=== PATIENT | male | born 1950 | race African-American/Black ===

== ENCOUNTER 2018-04-01 02:38 | Observation (INO) ==
--- NOTE | 2018-04-01 03:08 | ED ---
HPI General Chief Complaint: Chest Pain Stated Complaint: Chest pain Time Seen by Provider: 04/01/18 03:08 Source: patient Mode of arrival: ambulatory Limitations: no limitations History of Present Illness HPI narrative: 67-year-old male arrives with chest pain. Started about 3 hours ago while he was at rest. Location was retrosternal and did not radiate. He took nitro and aspirin and the pain at the time of my assessment in the ED had resolved. There is no shortness of breath. The patient has a history of CABG with 2 subsequent catheterization procedures with stents placed multiple times. He reports noncompliance with aspirin over the past several months however had taken intermittently over the past several days. He denies any change in his normal exercise or work routine. No shortness of breath. No cough or fever. Patient states it feels like prior heart related episodes. He reports history of "prediabetes" as well as hypertension hyperlipidemia. No tobaccoism. MD complaint: chest pain STEMI Alert: No Onset (ago): hour(s) (2.5) Duration: now resolved Onset: during rest Pain location: substernal Severity: mild Quality: heaviness Pain radiation: none Relieving factors: nitroglycerin and other (Aspirin) Exacerbating factors: exertion Related Data Allergies Allergy/AdvReac Type Severity Reaction Status Date / Time diatrizoate meglumine Allergy Severe Nausea Verified 04/01/18 02:46 fenofibrate Allergy Severe Nausea Verified 04/01/18 02:46 gadobenic acid Allergy Severe Nausea Verified 04/01/18 02:46 gadodiamide Allergy Severe Nausea Verified 04/01/18 02:46 gadoteridol Allergy Severe Nausea Verified 04/01/18 02:46 iodixanol Allergy Severe Nausea Verified 04/01/18 02:46 iohexol Allergy Severe Nausea Verified 04/01/18 02:46 iodine Allergy Mild Nausea/Vomi Verified 04/01/18 02:46 ting potassium iodide Allergy Mild Nausea/Vomi Verified 04/01/18 02:46 ting povidone-iodine Allergy Mild Nausea/Vomi Verified 04/01/18 02:46 ting sodium iodide Allergy Mild Nausea/Vomi Verified 04/01/18 02:46 ting sodium iodide Allergy Mild Nausea/Vomi Verified 04/01/18 02:46 ting STATINS Allergy Severe Muscle Pain Uncoded 04/01/18 02:46 Review of Systems ROS: all other systems reviewed are negative [facility] Medical History Medical History Hypercholesteremia (Acute) Hypertension (Acute) Myocardial infarct (Acute) Surgical History Surgical History Hx of CABG (Acute) Hx of appendectomy (Acute) Hx of heart artery stent (Acute) Social History Social History Substance History: No History of Abuse Second Hand Smoke Exposure: No Smoking Status: Never smoker How Often Do You Have a Drink Containing Alcohol: Never Recent Travel in [facility] within the Last 8 Weeks: No Recent Out of Country Travel within the Last 8 Weeks: No Immunization History Tetanus Immunization: <5 Years Hx Influenza Vaccine This Season: No Exam Narrative Exam Narrative: GENERAL: 67-year-old male well-nourished well-developed no acute distress SKIN: Focused skin assessment warm/dry. HEAD: Atraumatic. Normocephalic. EYES: Pupils equal and round. No scleral icterus. No injection or drainage. ENT: No nasal bleeding or discharge. Mucous membranes pink and moist. NECK: Trachea midline. No JVD. CARDIOVASCULAR: Regular rate and rhythm. No murmur appreciated. RESPIRATORY: No accessory muscle use. Clear to auscultation. Breath sounds equal bilaterally. GASTROINTESTINAL: Abdomen soft, non-tender, nondistended. Hepatic and splenic margins not palpable. MUSCULOSKELETAL: No obvious deformities. No clubbing. No cyanosis. No edema. NEUROLOGICAL: Awake and alert. No obvious cranial nerve deficits. Motor grossly within normal limits. Normal speech. PSYCHIATRIC: Appropriate mood and affect; insight and judgment normal Course Initial Documented Vital Signs Temperature 98.1 F 04/01/18 02:40 Pulse Rate 65 04/01/18 02:40 Respiratory Rate 18 04/01/18 02:40 Blood Pressure 166/78 H 04/01/18 02:40 Pulse Oximetry 100 04/01/18 02:40 Last Documented Vital Signs Temperature 98.1 F 04/01/18 02:40 Pulse Rate 56 L 04/01/18 05:12 Respiratory Rate 18 04/01/18 02:40 Blood Pressure 166/78 H 04/01/18 02:40 Pulse Oximetry 97 04/01/18 05:12 Medical Decision Making [facility] Narrative Medical decision making narrative: 57-year-old male multiple medical problems history coronary artery disease with history concerning for coronary disease. The patient will be kept here for chest pain center protocol. Medical Screen Exam Complete: Yes Emergency Medical Condition: Yes Differential Diagnosis Differential Diagnosis: NSTEMI, unstable angina, coronary vasospasm, PE, PTX, aortic dissection, pericarditis, myocarditis, endocarditis, PNA, esophageal disease, aneurysm, musculoskeletal etiologies, anxiety, cocaine/sympathomimetic abuse Medical Records Medical records reviewed: Yes I reviewed the patient's medical records. Lab Data Lab results reviewed: Yes I reviewed the patient's lab results. Lab results narrative: Troponin less than 0.02 Result diagrams: 04/01/18 03:00 04/01/18 03:00 Lab Results 04/01/18 04/01/18 Range/Units 03:00 03:00 WBC 5.7 (4.0-11.0) th/mm3 RBC 4.94 (4.50-5.90) mil/mm3 Hgb 13.2 (13.0-17.0) gm/dL Hct 40.4 (39.0-51.0) % MCV 81.9 (80.0-100.0) fL MCH 26.7 L (27.0-34.0) pg MCHC 32.6 (32.0-36.0) % RDW 16.8 (11.6-17.2) % Plt Count 156 (150-450) th/mm3 MPV 9.0 (7.0-11.0) fL Neut % (Auto) 47.9 (16.0-70.0) % Lymph % (Auto) 36.3 (9.0-44.0) % [place] % (Auto) 10.9 H (0.0-8.0) % Eos % (Auto) 4.2 H (0.0-4.0) % Baso % (Auto) 0.7 (0.0-2.0) % Neut # (Auto) 2.8 (1.8-7.7) th/mm3 Lymph # (Auto) 2.1 (1.0-4.8) th/mm3 [place] # (Auto) 0.6 (0.0-0.9) th/mm3 Eos # (Auto) 0.2 (0.0-0.4) th/mm3 Baso # (Auto) 0.0 (0.0-0.2) th/mm3 WBC Differential . Differential Comment Auto diff final Sodium 143 (136-145) meq/L Potassium 4.1 (3.5-5.1) meq/L Chloride 106 (98-107) meq/L Carbon Dioxide 27.5 (21.0-32.0) meq/L Anion Gap 10 (5-15) meq/L BUN 24 H (7-18) mg/dL Creatinine 1.13 (0.60-1.30) mg/dL Estimated GFR 79 L (>89) mL/min Random Glucose 127 H (74-106) mg/dL Calcium 8.6 (8.5-10.1) mg/dL Total Bilirubin 0.5 (0.2-1.0) mg/dL AST 22 (15-37) U/L ALT 33 (12-78) U/L Alkaline Phosphatase 87 (45-117) U/L Troponin I Less than 0.02 L (0.02-0.05) ng/mL Total Protein 7.6 (6.4-8.2) g/dL Albumin 3.6 (3.4-5.0) g/dL Imaging Data Radiologist's impression: Chest X-Ray 04/01/18 02:59 CONCLUSION: Mild left base atelectasis. Otherwise negative. ECG Data Attestation: I personally reviewed and interpreted this ECG as follows: Discharge Plan Discharge Disposition Patient Disposition: 30 Still Patient Physicians Team ED Provider: Randy Hernandez Primary Care Provider: UNKNOWN, Attending Provider: Jerel Rogers Other Providers: [employer] Status ED Status: Admitted Observation Patient
[2018-04-01 03:17] LABS: Baso % (Auto) 0.7 % (0.0-2.0); Eos # (Auto) 0.2 th/mm3 (0.0-0.4); Eos % (Auto) 4.2 % (0.0-4.0); Hematocrit 40.4 % (39.0-51.0); Hemoglobin 13.2 gm/dL (13.0-17.0); Lymph # (Auto) 2.1 th/mm3 (1.0-4.8); Lymph % (Auto) 36.3 % (9.0-44.0); Mean Corpuscular HGB Conc 32.6 % (32.0-36.0); Mean Corpuscular Hemoglobin 26.7 pg (27.0-34.0); Mean Corpuscular Volume 81.9 fL (80.0-100.0); Mono # (Auto) 0.6 th/mm3 (0.0-0.9); Mono % (Auto) 10.9 % (0.0-8.0); Neut # (Auto) 2.8 th/mm3 (1.8-7.7); Neut % (Auto) 47.9 % (16.0-70.0); Platelet Count 156 th/mm3 (150-450); Red Blood Count 4.94 mil/mm3 (4.50-5.90); Red Cell Distribution Width 16.8 % (11.6-17.2); White Blood Count 5.7 th/mm3 (4.0-11.0)
--- NOTE | 2018-04-01 03:23 | XR ---
EXAM DATE: 04/01/2018 3:19 AM EDT AGE/SEX: 67 years / Male INDICATIONS: Chest pain earlier today. CLINICAL DATA: This is the patient's initial encounter. Patient reports that signs and symptoms have been present for 1 day and indicates a pain score of 0/10. MEDICAL/SURGICAL HISTORY: . Pre Diabetes. Hypertension. Hypercholesteremia. Myocardial infarcti on. . Appendectomy. CABG. Stent COMPARISON: [facility] [place], CHEST SINGLE AP, 10/07/2012. . FINDINGS: Very mild left base atelectasis noted. No perceptible effusion. No pneumothorax. Heart size stable, upper limits of normal. Median sternotomy and coronary artery bypass graft changes are demonstrated. CONCLUSION: Mild left base atelectasis. Otherwise negative. Electronically signed by: Bob Mccormack MD 04/01/2018 3:22 AM EDT
[2018-04-01 03:44] LABS: Alanine Aminotransferase 33 U/L (12-78); Albumin 3.6 g/dL (3.4-5.0); Anion Gap 10 meq/L (5-15); Aspartate Aminotransferase 22 U/L (15-37); Blood Urea Nitrogen 24 mg/dL (7-18); Calcium 8.6 mg/dL (8.5-10.1); Carbon Dioxide 27.5 meq/L (21.0-32.0); Chloride 106 meq/L (98-107); Glomerular Filtration Rate 79 mL/min (>89); Glucose,Random 127 mg/dL (74-106); Potassium 4.1 meq/L (3.5-5.1); Sodium 143 meq/L (136-145)
[2018-04-01 03:48] LABS: Alkaline Phosphatase 87 U/L (45-117); Total Protein 7.6 g/dL (6.4-8.2)
[2018-04-01 08:44] LABS: Creatine Kinase 129 U/L (39-308)
[2018-04-01 08:58] LABS: Creatine Kinase MB 1.3 ng/mL (0.5-3.6)
--- NOTE | 2018-04-01 09:17 | P.HPCA ---
History of Present Illness [facility] Chief Complaint: Chest pain History of Present Illness: 67-year-old male with history of coronary artery disease including CABG 2 at age 40, presents emergency room for further evaluation of nonexertional, intermittent chest pain. Onset . Location substernal. Characterizes pressure. No radiation. No associated symptoms of nausea, vomiting, dyspnea, or diaphoresis. Precipitating factors seem to be after eating a meal or " eating too much." Relieving factors nitroglycerin, discomfort relieved within 1 2 minutes. Denies regular use of nitro, in fact never took nitroglycerin prescription given since CABG in the . Refills Nitro Rx yearly and tablets are not . Took total of 6 nitro tablets over last couple of days. Early this morning, took additional nitro SL without relief. Took [address] himself to hospital. States while walking into ER chest discomfort resolved. Endorses recent nuclear cardiac testing 3 months ago. After testing states Dr. Vaughn added Imdur 30mg daily to medication regimen for "a blockage." Past cardiac testing 01/06/2014 Cardiac catheterization (Dr. Phillips) Graft angiography: The saphenous vein graft presumably to the LAD was totally occluded. A vein graft to the obtuse marginal and the circumflex demonstrated a 90% stenosis at the anastomosis fo the circumflex. The internal mammary artery graft was no anastomosed into the coronary circulation. Conclusions: Successful PTCA and stenting of distal left circumflex graft. 10/09/2012 Cardiac catheterization (Dr. Phillips) Conclusions: 1. Status post PTCA and stenting of left circumflex graft. 2. Patent PATRICIA to left anterior descending artery. 3. Normal left ventricular function and hemodynamics. 02/16/2008 Cardiac catheterization (Dr. Phillips) Conclusion: The patient demonstrates patent graft to the obtuse marginal branch of the LAD with a patent right coronary artery. It does not appear that this chest pain is secondary to obstructive coronary artery disease. 11/21/2006 Cardiac catheterization (Dr. Phillips) Conclusions: 1. Successful PTCA and stenting of left circumflex and proximal right coronary artery. 2. Patent bypass grafts to the LAD and obtuse marginal of the circumflex. 3. Normal left ventricular function. 1990 CABGx2 Social history Known CAD, hypertension, hyperlipidemia, and diabetes. Reports recent HGA1C in 5 % range. Lifelong nonsmoker. Denies any alcohol or recreational drug use. Family history Noncontributory for early onset cardiovascular disease - Diagnosis (1) Chest pain with high risk for cardiac etiology (2) History of coronary artery disease (3) History of type 2 diabetes mellitus (4) History of hypertension Review of Systems All other systems reviewed negative except as stated in HPI PMFSH - History History Provided By: Patient - Medical History Medical History: Medical History (Last Updated 04/01/18 @ 09:39 by EDGAR Levin) CAD (coronary artery disease) Hypercholesteremia Hypertension Myocardial infarct - Surgical History Surgical History: Surgical History (Last Updated 04/01/18 @ 09:40 by EDGAR Levin) Hx of CABG Hx of appendectomy Hx of heart artery stent - Social History I have reviewed the patient's Social History: Yes - Tobacco History Second Hand Smoke Exposure: No Smoking Status: Never smoker - Alcohol History How Often Do You Have a Drink Containing Alcohol: Never - Substance Use History Substance History: No History of Abuse - Travel History History of Recent Travel: No Recent Travel in the [place] Within the Last 8 Weeks: No Recent Travel Out of the Country Within the Last 8 Weeks: No - Immunization History Tetanus Immunization: <5 Years Hx Influenza Vaccine This Season: No Medications and Allergies Active Medications: Active Medications Sodium Chloride (Ns Flush) 2 ml IV.FLUSH BID EDELMIRA Sodium Chloride (Ns Flush) 2 ml IV.FLUSH UNSCH PRN PRN Reason: FLUSH AFTER USING IV ACCESS Allergies Allergy/AdvReac Type Severity Reaction Status Date / Time diatrizoate meglumine Allergy Severe Nausea Verified 04/01/18 02:46 fenofibrate Allergy Severe Nausea Verified 04/01/18 02:46 gadobenic acid Allergy Severe Nausea Verified 04/01/18 02:46 gadodiamide Allergy Severe Nausea Verified 04/01/18 02:46 gadoteridol Allergy Severe Nausea Verified 04/01/18 02:46 iodixanol Allergy Severe Nausea Verified 04/01/18 02:46 iohexol Allergy Severe Nausea Verified 04/01/18 02:46 iodine Allergy Mild Nausea/Vomi Verified 04/01/18 02:46 ting potassium iodide Allergy Mild Nausea/Vomi Verified 04/01/18 02:46 ting povidone-iodine Allergy Mild Nausea/Vomi Verified 04/01/18 02:46 ting sodium iodide Allergy Mild Nausea/Vomi Verified 04/01/18 02:46 ting sodium iodide Allergy Mild Nausea/Vomi Verified 04/01/18 02:46 ting STATINS Allergy Severe Muscle Pain Uncoded 04/01/18 02:46 Home Medications Medication Instructions Recorded Confirmed Type Aspirin Low Dose 81 mg PO DAILY 04/01/18 04/01/18 History amlodipine 10 mg PO DAILY 04/01/18 04/01/18 History ezetimibe 10 mg PO DAILY 04/01/18 04/01/18 History isosorbide mononitrate 30 mg PO DAILY 04/01/18 04/01/18 History metoprolol tartrate 100 mg PO DAILY 04/01/18 04/01/18 History nitroglycerin 0.4 mg SUBLINGUAL Q5-15M PRN 04/01/18 04/01/18 History sitagliptin [Januvia] 100 mg PO DAILY 04/01/18 04/01/18 History Exam Vital signs: Vital Signs 04/01/18 02:40 04/01/18 05:12 04/01/18 07:05 Temperature 98.1 F 97.7 F Pulse Rate 65 56 L 56 L Respiratory Rate 18 16 Blood Pressure 166/78 H 113/66 Pulse Oximetry 100 97 99 04/01/18 07:45 Temperature 97.8 F Pulse Rate 58 L Respiratory Rate 16 Blood Pressure 118/65 Pulse Oximetry 99 Intake & Output 03/31/18 04/01/18 04/01/18 18:59 06:59 18:59 Weight 99.79 kg Narrative: GENERAL: Alert WN, WD, NAD, pleasant, -[place]vad[place] male HEAD: NC, AT EYES: Sclera clear, conjunctiva without injection, ENT: Mucous membranes pink and moist NECK: Supple, no masses, trachea midline CV: RRR, without murmur, rub, gallop, no JVD, S1-S2. No carotid bruits. RESP: Diminished lungs throughout bilateral, no crackles, wheeze, rhonchi, symmetrical chest rise, nonlabored, able to speak in full sentences ABD: Soft, NT, ND, no masses, positive bowel tones EXT: Pulses +2x4, no dependent edema MS: Normal tone x4 extremities, nontender, no obvious deformities, full range of motion NEURO: CN II through CN XII grossly intact, motor strength 5/5, gait WNL PSYCH: A+O x3, pleasant affect, appropriate speech, mood, insight and judgment SKIN: Normal turgor, normal texture, no lesions, no rashes, brisk cap refill, even hair distribution, midline chest surgical scar, bilateral lower extremities surgical scar Results 04/01/18 03:00 04/01/18 03:00 Cardiac Enzymes 04/01/18 04/01/18 Range/Units 03:00 07:48 AST 22 (15-37) U/L CK-MB (CK-2) 1.3 (0.5-3.6) ng/mL Troponin I Less than 0.02 L Less than 0.02 L (0.02-0.05) ng/mL CBC 04/01/18 Range/Units 03:00 WBC 5.7 (4.0-11.0) th/mm3 RBC 4.94 (4.50-5.90) mil/mm3 Hgb 13.2 (13.0-17.0) gm/dL Hct 40.4 (39.0-51.0) % Plt Count 156 (150-450) th/mm3 Neut # (Auto) 2.8 (1.8-7.7) th/mm3 Lymph # (Auto) 2.1 (1.0-4.8) th/mm3 [place] # (Auto) 0.6 (0.0-0.9) th/mm3 Eos # (Auto) 0.2 (0.0-0.4) th/mm3 Baso # (Auto) 0.0 (0.0-0.2) th/mm3 Comprehensive Metabolic Panel 04/01/18 Range/Units 03:00 Sodium 143 (136-145) meq/L Potassium 4.1 (3.5-5.1) meq/L Chloride 106 (98-107) meq/L Carbon Dioxide 27.5 (21.0-32.0) meq/L BUN 24 H (7-18) mg/dL Creatinine 1.13 (0.60-1.30) mg/dL Calcium 8.6 (8.5-10.1) mg/dL AST 22 (15-37) U/L ALT 33 (12-78) U/L Alkaline Phosphatase 87 (45-117) U/L Total Protein 7.6 (6.4-8.2) g/dL Albumin 3.6 (3.4-5.0) g/dL Intake and Output 03/31/18 04/01/18 04/01/18 22:59 06:59 14:59 Other: Weight 99.79 kg - Imaging and Cardiology Imaging: Impressions Chest X-Ray 04/01/18 02:59 CONCLUSION: Mild left base atelectasis. Otherwise negative. EKG interpretations - EKG EKG results cardiology: sinus rhythm (NSR/sinus arrthyrmia, nonspecifict st depression and t wave abnormalities) Caprini VTE Risk Assessment Caprini VTE Risk Assessment: Moderate/High Risk (score >= 2) Caprini Risk Assessment Model: Point Value = 1 Point Value = 2 Point Value = 3 Point Value = 5 Age 41-60 Minor surgery BMI > 25 kg/m2 Swollen legs Varicose veins or History of unexplained or recurrent spontaneous Oral contraceptives or hormone replacement Sepsis (< 1 month) Serious lung disease, including pneumonia (< 1 month) Abnormal pulmonary function Acute myocardial infarction Congestive heart failure (< 1 month) History of inflammatory bowel disease Medical patient at bed rest Age 61-74 Arthroscopic surgery Major open surgery (> 45 min) Laparoscopic surgery (> 45 min) Malignancy Confined to bed (> 72 hours) Immobilizing plaster cast Central venous access Age >= 75 History of VTE Family history of VTE Factor V Leiden Prothrombin 53773C Lupus anticoagulant Anticardiolipin antibodies Elevated serum homocysteine Heparin-induced thrombocytopenia Other congenital or acquired thrombophilia Stroke (< 1 month) Elective arthroplasty Hip, pelvis, or leg fracture Acute spinal cord injury (< 1 month) Prophylaxis Regimen: Total Risk Factor Score Risk Level Prophylaxis Regimen 0-1 Low Early ambulation 2 Moderate Order ONE of the following: *Sequential Compression Device (SCD) *Heparin 5000 units SQ BID 3-4 Higher Order ONE of the following medications: *Heparin 5000 units SQ TID *Enoxaparin/Lovenox 40 mg SQ daily (WT < 150 kg, CrCl > 30 mL/min) *Enoxaparin/Lovenox 30 mg SQ daily (WT < 150 kg, CrCl > 10-29 mL/min) *Enoxaparin/Lovenox 30 mg SQ BID (WT < 150 kg, CrCl > 30 mL/min) AND/OR *Sequential Compression Device (SCD) 5 or more Highest Order ONE of the following medications: *Heparin 5000 units SQ TID (Preferred with Epidurals) *Enoxaparin/Lovenox 40 mg SQ daily (WT < 150 kg, CrCl > 30 mL/min) *Enoxaparin/Lovenox 30 mg SQ daily (WT < 150 kg, CrCl > 10-29 mL/min) *Enoxaparin/Lovenox 30 mg SQ BID (WT < 150 kg, CrCl > 30 mL/min) AND *Sequential Compression Device (SCD) Assessment and Plan - Assessment (1) Chest pain with high risk for cardiac etiology Code(s): R07.9 - Chest pain, unspecified Status: Acute Plan: Admitted to chest pain center. ACS ruled out with 2 sets of EKGs and cardiac enzymes 5 hours apart. Seen and evaluated by Dr. Jerel Rogers. Proceed with Eddieiscan. Plan of care discussed in detail with patient who is agreeable to plan of care. (2) History of coronary artery disease Code(s): Z86.79 - Personal history of other diseases of the circulatory system Status: Chronic Plan: Continue isosorbide and metoprolol once updated in electronic medical record. (3) History of type 2 diabetes mellitus Code(s): Z86.39 - Personal history of other endocrine, nutritional and metabolic disease Status: Chronic Plan: Hold Januvia. SSI low dose coverage. (4) History of hypertension Code(s): Z86.79 - Personal history of other diseases of the circulatory system Status: Chronic Plan: Continue amlodipine.
--- NOTE | 2018-04-01 09:26 | P.PNCA ---
Subjective Interval history: 67-year-old gentleman with a long history of coronary artery disease having undergone bypass surgery at age 40 with 2 vessels grafted. Subsequently he has had 2 more stents placed. 3 months ago he was found to have a positive Yesika by Dr. Eddy with an attempt to treat medically by adding isosorbide. However he is now presenting with recurrent chest pain which is consistent with ischemic heart disease. After full discussion with the nurse practitioner a decision was made to repeat the Lexiscan for full documentation and if positive as expected contact Dr. Eddy for instructions as to either readmit for calf or his preferred therapeutic intervention. Otherwise I am in agreement with the documentation as entered Medications and Allergies Active Medications: Active Medications Sodium Chloride (Ns Flush) 2 ml IV.FLUSH BID EDELMIRA Sodium Chloride (Ns Flush) 2 ml IV.FLUSH UNSCH PRN PRN Reason: FLUSH AFTER USING IV ACCESS Allergies Allergy/AdvReac Type Severity Reaction Status Date / Time diatrizoate meglumine Allergy Severe Nausea Verified 04/01/18 02:46 fenofibrate Allergy Severe Nausea Verified 04/01/18 02:46 gadobenic acid Allergy Severe Nausea Verified 04/01/18 02:46 gadodiamide Allergy Severe Nausea Verified 04/01/18 02:46 gadoteridol Allergy Severe Nausea Verified 04/01/18 02:46 iodixanol Allergy Severe Nausea Verified 04/01/18 02:46 iohexol Allergy Severe Nausea Verified 04/01/18 02:46 iodine Allergy Mild Nausea/Vomi Verified 04/01/18 02:46 ting potassium iodide Allergy Mild Nausea/Vomi Verified 04/01/18 02:46 ting povidone-iodine Allergy Mild Nausea/Vomi Verified 04/01/18 02:46 ting sodium iodide Allergy Mild Nausea/Vomi Verified 04/01/18 02:46 ting sodium iodide Allergy Mild Nausea/Vomi Verified 04/01/18 02:46 ting STATINS Allergy Severe Muscle Pain Uncoded 04/01/18 02:46 Home Medications Medication Instructions Recorded Confirmed Type Aspirin Low Dose 81 mg PO DAILY 04/01/18 04/01/18 History nitroglycerin 0.4 mg SUBLINGUAL Q5-15M PRN 04/01/18 04/01/18 History Physical Exam Vital signs: Vital Signs 04/01/18 02:40 04/01/18 05:12 04/01/18 07:05 Temperature 98.1 F 97.7 F Pulse Rate 65 56 L 56 L Respiratory Rate 18 16 Blood Pressure 166/78 H 113/66 Pulse Oximetry 100 97 99 04/01/18 07:45 Temperature 97.8 F Pulse Rate 58 L Respiratory Rate 16 Blood Pressure 118/65 Pulse Oximetry 99 Intake & Output 03/31/18 04/01/18 04/01/18 18:59 06:59 18:59 Weight 99.79 kg Narrative: Somewhat obese gentleman in no acute distress resting comfortably Eyes PERRLA EOMI bilateral cataracts sclera slightly muddy but clear Mouth mucous membranes moist and well papillated no lesions Neck supple no JVD masses nodes or bruits Chest diminished breath sounds but clear cardiovascular regular rhythm no gallop rub or murmur Otherwise in agreement with the documentation as entered Results 04/01/18 03:00 04/01/18 03:00 Cardiac Enzymes 04/01/18 04/01/18 Range/Units 03:00 07:48 AST 22 (15-37) U/L CK-MB (CK-2) 1.3 (0.5-3.6) ng/mL Troponin I Less than 0.02 L Less than 0.02 L (0.02-0.05) ng/mL CBC 04/01/18 Range/Units 03:00 WBC 5.7 (4.0-11.0) th/mm3 RBC 4.94 (4.50-5.90) mil/mm3 Hgb 13.2 (13.0-17.0) gm/dL Hct 40.4 (39.0-51.0) % Plt Count 156 (150-450) th/mm3 Neut # (Auto) 2.8 (1.8-7.7) th/mm3 Lymph # (Auto) 2.1 (1.0-4.8) th/mm3 [place] # (Auto) 0.6 (0.0-0.9) th/mm3 Eos # (Auto) 0.2 (0.0-0.4) th/mm3 Baso # (Auto) 0.0 (0.0-0.2) th/mm3 Comprehensive Metabolic Panel 04/01/18 Range/Units 03:00 Sodium 143 (136-145) meq/L Potassium 4.1 (3.5-5.1) meq/L Chloride 106 (98-107) meq/L Carbon Dioxide 27.5 (21.0-32.0) meq/L BUN 24 H (7-18) mg/dL Creatinine 1.13 (0.60-1.30) mg/dL Calcium 8.6 (8.5-10.1) mg/dL AST 22 (15-37) U/L ALT 33 (12-78) U/L Alkaline Phosphatase 87 (45-117) U/L Total Protein 7.6 (6.4-8.2) g/dL Albumin 3.6 (3.4-5.0) g/dL Intake and Output 03/31/18 04/01/18 04/01/18 22:59 06:59 14:59 Other: Weight 99.79 kg - Imaging and Cardiology Imaging: Impressions Chest X-Ray 04/01/18 02:59 CONCLUSION: Mild left base atelectasis. Otherwise negative. Assessment and Plan - Plan We will repeat nuclear stress testing for documentation of ischemic area. If positive as anticipated we will contact Dr. Eddy for further instructions regarding either admission and cath or third therapeutic intervention.
--- NOTE | 2018-04-01 09:35 | ECG ---
Date Performed: 04/01/2018 Time Performed: 02:52:02 PTAGE: 67 years EKG: Sinus rhythm WITH MARKED SINUS ARRHYTHMIA NONSPECIFIC ST & T-WAVE ABNORMALITY ABNORMAL ECG ST depression is more prominent than prior tracing clinical correlation recommended PREVIOUS TRACING : 01/06/2014 09.49 DOCTOR: Jerel Rogers Interpretating Date/Time 04/01/2018 09:34:42
[2018-04-01] MEDS ORDERED: Regadenoson Inj 0.4 MG/5 ML Syringe IV.PUSH ONE (11:36)
--- NOTE | 2018-04-01 13:24 | NM ---
EXAM DATE: 04/01/2018 1:03 PM EDT AGE/SEX: 67 years / Male INDICATIONS:Angina. . Chest pain. CLINICAL DATA: This is the patient's initial encounter. Patient reports that signs and symptoms have been present for 1 day and indicates a pain score of 0/10. MEDICAL/SURGICAL HISTORY: Hypertension. Myocardial infarction. Cardiovascular disease. Angiop lasty. CABG. Appendectomy. COMPARISON: No prior exams available for comparison. DOSE: 11 mCi Tc 99m Myoview at rest 35 mCi [id number] at stress 0.4 mg Lexiscan STRESS SYMPTOMS: Dyspnea, abdominal pressure and chest pressure. EJECTION FRACTION: 53 % TECHNIQUE: The patient underwent pharmacologic stress with infusion of prescribed dose. Continuous ECG tracing was monitored during stress. Gated SPECT imaging was performed after stress and conventi onal SPECT imaging was performed at rest. The examination was performed on a SPECT/CT scanner, both attenuation and non-corrected datasets were reviewed. FINDINGS: There is significant redistribution in the anterior lateral wall of the large segment of myocardium. Moderate gut activity is obscured most of the inferior wall towards the base. The ejection fraction is 53% with inferolateral hypokinesis. RISK CATEGORY: Intermediate (1-3 % Annual Mortality Rate) CONCLUSION: 1. Significant stress-induced ischemia described above. Electronically signed by: Terry Gagnon MD 04/01/2018 1:23 PM EDT
[2018-04-01] MEDS: Isosorbide Mononitrate 30 MG ER 24HR Tablet (Imdur) PO SCH (14:01)
[2018-04-01] MEDS: amLODIPine 10 MG Tablet PO SCH (14:01)
[2018-04-01] MEDS: Ezetimibe 10 MG Tablet PO SCH (14:01)
--- NOTE | 2018-04-01 15:54 | P.PN ---
Subjective Interval history: 67 years old male non smoker, HTN, DM type 2, known CAD s/p stents in the past - ff by Dr. Vaughn as OP presented with chest pain- + myocardial perfusion study- + redistribution in the anterior lateral aspect of myocardium EF 53% admitted for further evaluation on further history - patient states compliance with diet and exercise however is not taking ASA regularly,- states history of hiatal hernia - but no history of GIB "just scared to take it" but did take ASA last 3 days daily due to chest pain "only when I feel pressure and it helps" patient also unable to tolerate statins- " severe muscle aches" taking Zetia regularly DM type 2 with good hypoglycemic awareness - takes Januvia 100 mg daily. sttes good hypoglycemic awareness states he gets regular blood works through his PCP- [facility] - lipid panel, A1C- as OP about 3 months ago- reportedly good non smoker, watches his diet, states he has been working on weight reduction and lost considerable amount of weight Physical Exam Vital signs: Vital Signs 04/01/18 02:40 04/01/18 05:12 04/01/18 07:05 Temperature 98.1 F 97.7 F Pulse Rate 65 56 L 56 L Respiratory Rate 18 16 Blood Pressure 166/78 H 113/66 Pulse Oximetry 100 97 99 04/01/18 07:45 04/01/18 08:44 04/01/18 11:37 Temperature 97.8 F Pulse Rate 58 L 63 52 L Respiratory Rate 16 Blood Pressure 118/65 Pulse Oximetry 99 04/01/18 13:23 Temperature Pulse Rate 63 Respiratory Rate 16 Blood Pressure 123/74 Pulse Oximetry 97 Intake & Output 03/31/18 04/01/18 04/01/18 18:59 06:59 18:59 Weight 99.79 kg 99.79 kg Other: Weight On Admission 99.79 kg Narrative: no acute distress anicteric, pupils equally reactive neck supple, no bruit'lungs- clear regular rhythm abdomen- soft nontender extremiteis no edema neuro exam- unremarkable Results - Labs CBC & Chem 7: 04/01/18 03:00 04/01/18 03:00 Laboratory Results - last 24 hr 04/01/18 04/01/18 04/01/18 03:00 03:00 07:48 WBC 5.7 RBC 4.94 Hgb 13.2 Hct 40.4 MCV 81.9 MCH 26.7 L MCHC 32.6 RDW 16.8 Plt Count 156 MPV 9.0 Neut % (Auto) 47.9 Lymph % (Auto) 36.3 Spink % (Auto) 10.9 H Eos % (Auto) 4.2 H Baso % (Auto) 0.7 Neut # (Auto) 2.8 Lymph # (Auto) 2.1 Spink # (Auto) 0.6 Eos # (Auto) 0.2 Baso # (Auto) 0.0 WBC Differential . Differential Comment Auto diff final Sodium 143 Potassium 4.1 Chloride 106 Carbon Dioxide 27.5 Anion Gap 10 BUN 24 H Creatinine 1.13 Estimated GFR 79 L Random Glucose 127 H Calcium 8.6 Total Bilirubin 0.5 AST 22 ALT 33 Alkaline Phosphatase 87 Total Creatine Kinase 129 CK-MB (CK-2) 1.3 Troponin I Less than 0.02 L Less than 0.02 L Total Protein 7.6 Albumin 3.6 - Imaging Impressions Myocardial Perfusion Scan Nuc Med 04/01/18 00:00 CONCLUSION: 1. Significant stress-induced ischemia described above. Chest X-Ray 04/01/18 02:59 CONCLUSION: Mild left base atelectasis. Otherwise negative. Assessment and Plan - Plan 67 years old male known CAD Past cardiac testing 01/06/2014 Cardiac catheterization (Dr. Phillips) Graft angiography: The saphenous vein graft presumably to the LAD was totally occluded. A vein graft to the obtuse marginal and the circumflex demonstrated a 90% stenosis at the anastomosis fo the circumflex. The internal mammary artery graft was no anastomosed into the coronary circulation. Conclusions: Successful PTCA and stenting of distal left circumflex graft. 10/09/2012 Cardiac catheterization (Dr. Phillips) Conclusions: 1. Status post PTCA and stenting of left circumflex graft. 2. Patent PATRICIA to left anterior descending artery. 3. Normal left ventricular function and hemodynamics. 02/16/2008 Cardiac catheterization (Dr. Phillips) Conclusion: The patient demonstrates patent graft to the obtuse marginal branch of the LAD with a patent right coronary artery. It does not appear that this chest pain is secondary to obstructive coronary artery disease. 11/21/2006 Cardiac catheterization (Dr. Phillips) Conclusions: 1. Successful PTCA and stenting of left circumflex and proximal right coronary artery. 2. Patent bypass grafts to the LAD and obtuse marginal of the circumflex. 3. Normal left ventricular function. 1990 CABGx2 A/P admitted for chest pain CAD - Angina + Myocardial perfusion study 03/31 + significant stress induced ischemia - redistribution in the anterior lateral wall, hypokinesis on the inferior wall , EF 53% History of CAD with stents placed History of Hypertension History of hyperlipidemia - troponins negative - 3 months ago as OP- + perfusion study-opted for medical management - non compliant though with ASA- start 325 mg po daily- d/w him benefits outweigh risk (no history of GIB -+ hx of ) - ASA daily. 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 Vaughn History of DM type 2 - check A1C. states good hypoglycemic awareness- per patient last A1C- good, good readings at home - resume his home Januvia next few days change Attending service to [facility]
[2018-04-01] MEDS: Metoprolol Tartrate 25 MG Tablet PO SCH (21:43)
--- NOTE | 2018-04-02 05:51 | MB ---
cc: aFm Hernandez DO DATE: 04/01/2018 REASON FOR CONSULTATION: Abnormal stress test. HISTORY OF PRESENT ILLNESS: Paulo Mccann is a pleasant 67-year-old male who sees my partner, Dr. Vaughn, in the office and presented due to chest pain. He previously had a stress test a number of months ago in the office and was noted to have a small anterior defect. Because of this, Dr. Vaughn appropriately tried to treat him medically by adding Imdur 30 mg daily. Lately, the patient started noticing some more chest pain located substernally, which feels somewhat like pressure. It does not radiate anywhere. He feels like it bothers him more when he eats too much. Usually, nitroglycerin seems to relieve it, as well as relaxing for a few minutes. Before this episode, he states that he never took his nitroglycerin since his previous CABG, but he does refill it every 6 months to a year. He took a total of 6 nitro pills over the last couple of days. This morning, when he attempted to take nitro, he had no relief and so he took [address] himself to the hospital. While walking into the ER, he noted that the chest pain resolved. He ended up undergoing a pharmacologic nuclear stress test here for documentation, and showed a significant amount of ischemia in the anterolateral wall of a large segment. Because of this, I was asked to see him for consideration of cardiac catheterization. PAST MEDICAL HISTORY: 1. Coronary artery disease. 2. Hyperlipidemia. 3. Hypertension. 4. Myocardial infarction. PAST SURGICAL HISTORY: 1. CABG x3 (1989 at [facility]) with PATRICIA to LAD, SVG to OM1, SVG to OM2. 2. Cardiac catheterization (01/06/2014). Left main normal. LAD totally occluded. Left circumflex with no significant disease. OMs are totally occluded. RCA with no significant disease. Saphenous vein graft to obtuse marginal occluded. Second saphenous vein graft to obtuse marginal with a 90% stenosis. PATRICIA to LAD was not shot. Underwent PCI of the saphenous vein graft to obtuse marginal with a Resolute drug-eluting stent (2.5 x 12). 3. Appendectomy. ALLERGIES: DIATRIZOATE MEGLUMINE, FENOFIBRATE, GADOPENTETIC ACID, GADODIAMIDE, GADOTERIDOL, IODIXANOL, IOHEXOL, POTASSIUM IODIDE, SODIUM IODIDE, STATINS. FAMILY HISTORY: Denies sudden cardiac within the family. SOCIAL HISTORY: Denies tobacco, alcohol or drug abuse. REVIEW OF SYSTEMS: Fourteen systems were reviewed including osteopathic. Pertinent positives and negatives above, otherwise negative. PHYSICAL EXAMINATION: VITAL SIGNS: Temperature 97.8, heart rate 63, blood pressure 123/74, respirations 16, pulse oximetry 97% on room air. GENERAL: The patient appears well, in no acute distress, alert, awake and oriented x3. HEENT: Extraocular muscles intact. Mucous membranes moist. NECK: Supple. No JVD at 45 degrees. No carotid bruits heard bilaterally. Carotid upstroke is brisk in nature. HEART: Regular rate and rhythm. Positive first and second heart sounds with no noted murmurs, gallops or rubs. LUNGS: Clear to auscultation bilaterally. No wheezes, rales or rhonchi. ABDOMEN: Soft, nontender, nondistended. No organomegaly noted. EXTREMITIES: Show no clubbing, cyanosis or edema. Femoral and distal pulses are intact bilaterally. NEUROLOGIC: No focal deficits. SKIN: Warm, dry and intact. OSTEOPATHIC: No kyphoscoliosis, lordosis or paraspinal tender points. LABORATORY DATA: Hemoglobin 13.2, hematocrit 40.4, platelets 156. Potassium 4.1, BUN 24, creatinine 1.13. Troponin negative x3. Electrocardiogram (04/01/2018 at 07:35): Sinus bradycardia, ST-T wave changes anterolaterally, possibly due to ischemia. IMPRESSION: 1. Chest pain concerning for coronary insufficiency. 2. Abnormal stress test (intermediate risk) with anterolateral large area of ischemia. 3. Coronary artery disease with a history of coronary artery bypass graft, as above. 4. Type 2 diabetes mellitus. 5. Hypertension. RECOMMENDATIONS: 1. Mr. Mccann presented with chest pain concerning for unstable angina. 2. Stress test shows a large area of anterolateral ischemia, which was considered an intermediate risk stress test, although being a large area, this characterizes it as a high risk stress test. 3. We will plan on cardiac catheterization tomorrow. He will be n.p.o. after midnight. 4. Further recommendations will be made after coronary visualization. 5. The patient does have a significant STATIN ALLERGY for which he has tried multiple statins and had muscle aches, so most likely he will not be discharged on statin therapy. Thank you for allowing me to see Paulo Mccann. If there are any questions, please do not hesitate to call. DO JAUN Chandler/[email or web address] , 10:38 PM , 10:52 PM
[2018-04-02 06:16] LABS: Chol/HDL Ratio 2.74 Ratio
[2018-04-02] MEDS: Isosorbide Mononitrate 30 MG ER 24HR Tablet (Imdur) PO SCH (07:53)
[2018-04-02] MEDS: Sod Chloride 0.9% Inj 1,000 ML IV.CONT SCH (09:49)
[2018-04-02] MEDS: amLODIPine 10 MG Tablet PO SCH (09:55)
[2018-04-02] MEDS: Ezetimibe 10 MG Tablet PO SCH (09:56)
[2018-04-02] MEDS: Metoprolol Tartrate 25 MG Tablet PO SCH ×2 (09:56→20:52)
[2018-04-02] MEDS ORDERED: Dextrose 50% in Water 50 ML Vial IV.PUSH PRN (10:11)
--- NOTE | 2018-04-02 10:14 | P.PN ---
Subjective Interval history: Follow up on patient with CAD, hx of previous stents, chest pain with abnormal stress test. Patient seen and examined. Patient scheduled for cardiac cath today. He denies any palpitations, chest pain or dyspnea. He denies any N/V or abdominal pain. He says he feels pretty good. Physical Exam Vital signs: Vital Signs 04/01/18 11:37 04/01/18 13:23 04/01/18 16:00 Temperature Pulse Rate 52 L 63 62 Respiratory Rate 16 16 Blood Pressure 123/74 138/74 Pulse Oximetry 97 97 04/01/18 20:00 04/01/18 23:57 04/02/18 07:54 Temperature 98.2 F 98.0 F 97.4 F L Pulse Rate 64 71 66 Respiratory Rate 17 18 20 Blood Pressure 117/70 105/63 139/65 Pulse Oximetry 94 L 97 94 L Intake & Output 04/01/18 04/02/18 04/02/18 18:59 06:59 18:59 Weight 99.79 kg Other: Weight On Admission 99.79 kg Narrative: GENERAL: WDWN AAM patient, INAD. Awake and alert. Appears comfortable. SKIN: Warm and dry. HEENT: Atraumatic. Normocephalic. Pupils equal and round. No scleral icterus. No injection or drainage. No nasal bleeding or discharge. Mucous membranes pink and moist. NECK: Trachea midline. CARDIOVASCULAR: Regular rate and rhythm. No murmur auscultated. RESPIRATORY: No accessory muscle use. Clear to auscultation. Breath sounds equal bilaterally. GASTROINTESTINAL: Abdomen soft, non-tender, nondistended. +BS. MUSCULOSKELETAL: Extremities without clubbing, cyanosis, or edema. No obvious deformities. NEUROLOGICAL: Awake and alert. No obvious cranial nerve deficits. Motor grossly within normal limits. Able to move all extremities. Normal speech. PSYCHIATRIC: Appropriate mood and affect; insight and judgment normal. Results - Labs CBC & Chem 7: 04/01/18 03:00 04/01/18 03:00 Laboratory Results - last 24 hr 04/01/18 04/02/18 15:27 05:10 Troponin I 0.02 Triglycerides 67 Cholesterol 140 LDL Cholesterol, Calc 76 HDL Cholesterol 51.0 Cholesterol/HDL Ratio 2.74 - Imaging Impressions Myocardial Perfusion Scan Nuc Med 04/01/18 00:00 CONCLUSION: 1. Significant stress-induced ischemia described above. Assessment and Plan - Plan 67 years old male known CAD Past cardiac testing 01/06/2014 Cardiac catheterization (Dr. Phillips) Graft angiography: The saphenous vein graft presumably to the LAD was totally occluded. A vein graft to the obtuse marginal and the circumflex demonstrated a 90% stenosis at the anastomosis fo the circumflex. The internal mammary artery graft was no anastomosed into the coronary circulation. Conclusions: Successful PTCA and stenting of distal left circumflex graft. 10/09/2012 Cardiac catheterization (Dr. Phillips) Conclusions: 1. Status post PTCA and stenting of left circumflex graft. 2. Patent PATRICIA to left anterior descending artery. 3. Normal left ventricular function and hemodynamics. 02/16/2008 Cardiac catheterization (Dr. Phillips) Conclusion: The patient demonstrates patent graft to the obtuse marginal branch of the LAD with a patent right coronary artery. It does not appear that this chest pain is secondary to obstructive coronary artery disease. 11/21/2006 Cardiac catheterization (Dr. Phillips) Conclusions: 1. Successful PTCA and stenting of left circumflex and proximal right coronary artery. 2. Patent bypass grafts to the LAD and obtuse marginal of the circumflex. 3. Normal left ventricular function. 1990 CABGx2 A/P admitted for chest pain CAD - Angina + Myocardial perfusion study 03/31 + significant stress induced ischemia - redistribution in the anterior lateral wall, hypokinesis on the inferior wall , EF 53% History of CAD with stents placed History of Hypertension History of hyperlipidemia - troponins negative - 3 months ago as OP- + perfusion study-opted for medical management - non compliant though with ASA- start 325 mg po daily- d/w him benefits outweigh risk (no history of GIB -+ hx of HH) - ASA daily. 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 Keep NPO. Start IVF. Hypertension - continue on Norvasc, Imdur and Lopressor - continue to monitor BP and adjust treatment accordingly History of DM type 2 A1c pending - hold home Januvia - begin accucheks and ISS DVT prophylaxis - SCD/ANNA loyd Discussed Condition With: patient, nursing staff, Dr. Jaquez Discharge Planning: Not ready for discharge. Discharge pending cardiac cath and cardiology clearance.
--- NOTE | 2018-04-02 10:32 | ECG ---
Date Performed: 04/01/2018 Time Performed: 07:35:20 PTAGE: 67 years EKG: SINUS BRADYCARDIA ST DEVIATION AND MODERATE T-WAVE ABNORMALITY, CONSIDER LATERAL ISCHEMIA A BNORMAL ECG PREVIOUS TRACING : 04/01/2018 02.52 Since previous tracing, no significant change noted DOCTOR: Dave Phillips Interpretating Date/Time 04/02/2018 10:30:46
[2018-04-02] MEDS: Insulin NovoLOG Aspart Correctional Sugar Inj SQ SCH ×3 (12:53→20:53)
--- NOTE | 2018-04-02 14:52 | TR ---
Date Performed: 04/01/2018 Time Performed: 12:02:10 DOCTOR: Dave Phillips DRUG LIST: CLINICAL HISTORY: REASON FOR TEST: CHEST PAIN REASON FOR ENDING: OBSERVATION: CONCLUSION: COMMENTS: Lexiscan stress test was performed under standard four minute protocol. Radionuclide was injected one minute prior to ending the test. No electrocardiographic abormalities were present t o suggest ischemia. Nuclear imaging and interpretation are pending.
[2018-04-02 15:38] LABS: Hemoglobin A1c 6.7 % (4.3-6.0)
[2018-04-02] MEDS ORDERED: Heparin/NS PF Inj 1,000 ML ONE ×2 (17:20→18:24)
[2018-04-02] MEDS ORDERED: MethylPREDNISolone Sod Succinate Inj 125 MG/2 ML Vial ONE (17:20)
[2018-04-02] MEDS ORDERED: fentaNYL Citrate Inj 100 MCG/2 ML Ampul ONE (17:20)
[2018-04-02] MEDS ORDERED: Famotidine PF Inj 20 MG/2 ML Vial ONE (17:21)
[2018-04-02] MEDS ORDERED: Heparin 10,000 UNITS/10 ML Vial (for IV use) ONE (17:21)
[2018-04-02] MEDS ORDERED: Misc Info for Pharmacy OTHER STA (19:36)
[2018-04-02] MEDS ORDERED: Iohexol 350 MG/ML 100 ML Vial (for Cath Lab) IVCONTRAST ONE (20:00)
--- NOTE | 2018-04-02 20:02 | CATHPROC ---
IdenIve HIS Report Study Information Study Number Admission Scheduled Start Study Start [id number] Apr 01 2018 5:04AM 04/02/2018 Apr 02 2018 5:16PM [place] Service Cardiac Pacer/ICD Admit Source Facility Department Emergency department [facility] - Human Services Instructor Physician and Clinical Staff Initial [place] Card Assembler Chasidy Lopez RN Recorder Anne Sarmiento,RT(R) (BS) Scrub Moraima Vo ,RT(R) Procedures Performed Procedure Location (Site) Vessel Name Coronary Angiograms RCA Right Coronary Coronary Angiograms SVG-OM CIRC Coronary Angiograms PATRICIA-LAD Left Coronary Drug Eluting Inflatio SVG-OM CIRC L Heart Cath PTCA SVG-OM CIRC Wire insertion Radial (right) Radial Art. Equipment Time Garbage Truck Helper Description Size Mfg Part Number Used/Scraped WIRE, BALANCE MIDDLEWEIGHT [id number] 18:05 [employer] 190CM Used 190CM *[id number] TRANSDUCER, TRUWAVE [id number] 17:47 NAVARRO RAMIREZ * Used W/STOCKCOCK *[id number] 18:43 [employer] STENT, SYNERGY 3.0 X 16MM Used *[id number] 18:38 [employer] STENT, SYNERGY 3.5 X12MM Used *[id number] *[id number] *[id number] 534-518T *[id number] [id number] *[id number] ENDOVASCULAR WIRE, SPIDERFX 4.0 X [id number] 18:05 40 X 320CM Used COMPANY 320/190CM *[id number] 17:47 Xeros BLANKET,WARM AIR CCL * Used *[id number] 17:47 Xeros PACK, CCL CUSTOM * Used *[id number] 17:47 Xeros SUPPORT, ARTERIAL ADULT [id number] *[id number] Used [id number] 18:24 MEDTRONIC BALLOON, 2.0 X 15MM EUPHORA 15MM Used *[id number] BALLOON, 3.0 X 12MM NC [id number] 18:51 MEDTRONIC 12MM Used EUPHORA *[id number] 18:25 [employer] 30 AMIRAH INDEFLATOR Used *[id number] BAND, RADIAL COMPRESSION TR [id number] 19:08 [employer] MEDICAL 24CM Used SHORT 24 *[id number] 17:47 [employer] MEDICAL WIRE, EXCHANGE 260CM 3MMJ 260CM Used *[id number] 17:47 NAMIC MANIFOLD, 4 PORT * Used *[id number] 17:47 NYCOMED OMNIPAQUE, 350 MG, 150ML 150ML [id number] Used SHEATH, FR6 TRANSRADIAL [id number] 17:47 TERUMKit[employer] MEDICAL FR 6 Used SLENDER 10CM *[id number] History: Allergies Allergy Reaction iohexol Nausea potassium iodide Nausea/Vomiting sodium iodide Nausea/Vomiting diatrizoate meglumine Nausea iodine Nausea/Vomiting povidone-iodine Nausea/Vomiting fenofibrate Nausea gadoteridol Nausea gadodiamide Nausea iodixanol Nausea gadobenic acid Nausea STATINS Muscle Pain History: Risk Factors Family History of Hypertension Dyslipidemia Previous PA Previous Heart Failure Premature CAD Yes Yes No Yes No Prior Valve Prior PCI Prior PCIDate Prior CABG Prior CABGDate Surgery No Yes 12/08/2013 Yes 03/10/1990 Cerebrovascular Peripheral Artery Chronic Lung On Dialysis Diabetes Disease Disease Disease No No No No Yes History: Stress Tests Stress or Imaging Studies Performed Yes Standard Exercise Stress Test No Stress Echo No Stress Test SPECT Stress Test SPECT Result Stress Test SPECT Ischemia Risk/Extent Yes Positive High Stress Test CMR No Cardiac CTA Coronary Calcium Score No No History: Other Current Smoker No Labs Hgb (g/dl) Hct (%) WBC (l/cumm) Platelets (thousands) 11.60-17.00 35.00-51.00 4.00-11.00 150.00-450.00 13.2 40.4 5.7 156 Glucose (mg/dl) BUN (mg/dl) Creatinine (mg/dl) BUN:Creatinine (1:x) 74.00-106.00 7.00-18.00 0.50-1.30 10.00-20.00 127 24 1.1 21.8 Na (meq/l) K (meq/l) 136.00-145.00 3.50-5.10 143 4.1 Troponin I (ng/ml) CPK (u/l) CPK-MB (ng/ML) 0.02-0.05 26.00-308.00 0.50-3.60 0.02 129 1.3 Medication Medication Total Dose (Bolus/Oral) Medication Total Dosage/Unit 1% XYLOCAINE 2 mL BENADRYL 25 mg BRILLINTA 180 mg FENTANYL 25 mcg HEPARIN 6000 units NTG (IC) 200 mcg PEPCID 20 mg RADIAL COCKTAIL 1 units SOLU-CORTEF 125 mg VERSED 0.5 mg Medications (Bolus/Oral) Medication Time Given Dosage/Unit Administered By Reason SOLU-CORTEF 04/02/2018 5:27:13 PM 125 mg Zuly Lopezt 125 mg SOLU-CORTEF given in lab by Chasidy Lopez, CARL via Peripheral IV. BENADRYL 04/02/2018 5:29:36 PM 25 mg Zuly Lopezt 25 mg BENADRYL given in lab by Chasidy Lopez, CARL via Peripheral IV. PEPCID 04/02/2018 5:30:35 PM 20 mg Chasidy Lopez 20 mg PEPCID given in lab by Chasidy Lopez RN. 1% XYLOCAINE 04/02/2018 5:44:33 PM 2 mL Fam Hernandez 2 mL 1% XYLOCAINE given in lab by Fam Hernandez in Right Radial via Subcutaneous. VERSED 04/02/2018 5:45:21 PM 0.5 mg Chasidy Lopez 0.5 mg VERSED given in lab by Chasidy Lopez, CARL via Peripheral IV. FENTANYL 04/02/2018 5:46:33 PM 25 mcg Fam Hernandez 25 mcg FENTANYL given in lab by Fam Hernandez via Peripheral IV. Ntg 200mcg Verapamil 2.5mg Heparin RADIAL COCKTAIL 04/02/2018 5:48:13 PM 1 units Fam Hernandez 2000U 1 units RADIAL COCKTAIL given in lab by Fam Hernandez in Right Radial via Radial. Reason: Ntg 2 00mcg Verapamil 2.5mg Heparin 4000U. HEPARIN 04/02/2018 6:05:29 PM 6000 units Chasidy Lopez 6000 units HEPARIN given in lab by Chasidy Lopez RN via Peripheral IV. NTG (IC) 04/02/2018 6:46:57 PM 200 mcg Fam Hernandez 200 mcg NTG (IC) given in lab by Fam Hernandez via Intra-coronary. BRILLINTA 04/02/2018 7:04:07 PM 180 mg Chasidy Lopez 180 mg BRILLINTA given in lab by Chasidy Lopez, CARL in Per mouth via Oral. Medication (Drip) Medication Time Given Dosage/Unit Concentration/Unit Diluent (ml) Solution IV Solutions 04/02/2018 5:20:46 PM 0 mL (IV) 500 NaCl .9 IV Solutions given in lab by Chasidy Lopez, RN via Peripheral IV. Pump/Drip Flow = 30 ml/hr using NaCl .9. Initial Case Assessment Cardiovascular HR Rhythm Chest Pain 71 reg 0 Edema Present Skin color Skin None Normal Warm Dry Circulatory - Right Pulses Dorsalis Pedis Femoral Radial 2 2 2 Scale (0,1,2,3,4,d) Scale (0,1,2,3,4,d) Circulatory - Lower Extremities Color Lower Right Color Lower Left Normal Normal Neurological State Oriented to time-place- Alert Moves all extremities person Respiration - General Respiration Rate SpO2 (%) (B/min) 19 98 Chronological Log Time Study Chronological Log 17:18:00 Patient arrived via Bed. 17:18:02 Patient Name, D.O.B, / Armband Verified By R.N. 17:18:03 Consent signed by the physician and the patient and verified by the Human Services Instructor staff. 17:18:05 Pre-op and post- op instructions given; patient acknowledges understanding of instructions. 17:20:20 Presedation assessment performed by Human Services Instructor RN. 17:20:22 Allens test performed on the right radial and ulnar artery. 17:20:35 Patient has been NPO for More than 6Hrs. 17:20:36 Skin Breakdown none seen or reported 17:20:38 Patient Warmer Placed on the Table. 17:20:41 Edgardo Prominences Protected 17:20:42 A # 20 IV was noted in the Antecubital (left). Grade = 0 17:20:46 IV Solutions given in lab by Chasidy Lopez, CARL via Peripheral IV. Pump/Drip Flow = 30 ml /hr using NaCl .9. 17:20:47 History and physical on the chart or being dictated. Assessment: Initial Case, HR=71 BPM, Rhythm=reg, Chest Pain=0, Edema=None, Color=Normal, Skin = Warm, Dry Right Pulses: Macario Ped=2, Femoral=2, Radial=2 Lower Right Extremities: Color=Normal 17:21:10 Lower Left Extremities: Color=Normal Neurological: State=Alert, Ox3, GOODIWN Respiration: Resp=19 B/min, SpO2=98 % Vitals capture started with the following parameters, Patient=Adult, Interval=5 min, Initial Pr vcdqdm=313 mmHg, 17:25:15 Deflation Rate=5 mmHg, Cuff placed on Left Arm 17:25:51 XKCT=383/92 mmhg, SpO2=99.0 %, Pain=0, Varinder=10, [place]=2 17:27:13 125 mg SOLU-CORTEF given in lab by Chasidy Lopez RN via Peripheral IV. 17:29:15 Reference ECG taken 17:29:36 25 mg BENADRYL given in lab by Chasidy Lopez, CARL via Peripheral IV. 17:30:35 20 mg PEPCID given in lab by Chasidy Lopez RN. 17:34:13 Right Radial and groin(s) prepped with 2% chlorhexidine, and draped after a 3 min. waiting time. 17:42:23 Pressure channel 1 zeroed. Time Out. Correct patient, correct procedure, correct physician, labs, allergies, and equipment verified with slab installer 17:43:48 team present. Fire risk assesment completed (see hard stop sheet for coding). Time Out Conc urred by MD and individual staff in procedure. 17:44:31 Case Start 17:44:33 2 mL 1% XYLOCAINE given in lab by Fam Hernandez in Right Radial via Subcutaneous. 17:45:21 0.5 mg VERSED given in lab by Chasidy Lopez, CARL via Peripheral IV. 17:46:33 25 mcg FENTANYL given in lab by Fam Hernandez via Peripheral IV. 17:47:32 Access site was Right Radial Artery . A SHEATH, FR6 TRANSRADIAL SLENDER 10CM FR 6 was advanced into the Radial (right) using the Perc utaneous 17:47:57 technique. 1 units RADIAL COCKTAIL given in lab by Fam Hernandez in Right Radial via Radial. Reason: Ntg 200mcg 17:48:13 Verapamil 2.5mg Heparin 4000U. A JR 4.0 INFINITI CATHETER FR 5 was advanced over a wire. OMNIPAQUE, 350 MG, 150ML 150ML was us ed for 17:48:37 injections. After removing the current catheter a YULIA INFINITI CATHETER FR 5 was advanced over a WIRE, EXCH ALEKSANDER 260CM 17:51:48 3MMJ 260CM. 17:54:32 The PATRICIA-LAD was injected and visualized at various angles. OMNIPAQUE, 350 MG, 150ML 150ML used. After removing the current catheter a JR 4.0 INFINITI CATHETER FR 5 was advanced over a WIRE, E XCHANGE 260CM 17:55:32 3MMJ 260CM. Recorded Pressure: LV, HR=67, Condition=Condition 1 17:57:31 (Left Ventricle) LV 140/7/14 Recorded Pressure: LV, Ao, HR=62, Condition=Condition 1 17:57:51 (Left Ventricle) LV 136/8/20, (Aorta) Ao 143/79/104 17:58:38 The RCA was injected and visualized at various angles. OMNIPAQUE, 350 MG, 150ML 150ML used . 18:01:21 The SVG-OM was injected and visualized at various angles. OMNIPAQUE, 350 MG, 150ML 150ML us ed. After removing the current catheter a JL 3.5 INFINITI CATHETER FR 5 was advanced over a WIRE, E XCHANGE 260CM 18:03:01 3MMJ 260CM. 18:05:29 6000 units HEPARIN given in lab by Chasidy Lopez RN via Peripheral IV. After removing the current catheter a AL 1 GUIDE CATHETER FR 6 was advanced over a WIRE, EXCHAN GE 260CM 18:05:53 3MMJ 260CM. 18:16:43 A WIRE, BALANCE MIDDLEWEIGHT 190CM 190CM was inserted via Radial (right). 18:17:58 Wire removed 18:18:43 Activated Clotting Time Drawn 18:22:01 A WIRE, SPIDERFX 4.0 X 320/190CM 40 X 320CM was inserted via Radial (right). 18:22:15 ACT (Normal Range 90-180) = 318 A BALLOON, 2.0 X 15MM EUPHORA 15MM was inserted over WIRE, BALANCE MIDDLEWEIGHT 190CM 190CM via the 18:23:53 Radial (right). A BALLOON, 2.0 X 15MM EUPHORA 15MM over a WIRE, BALANCE MIDDLEWEIGHT 190CM 190CM in the SVG-OM was 18:25:06 inflated using a 30 AMIRAH INDEFLATOR at 8 amirah for 12 sec. A BALLOON, 2.0 X 15MM EUPHORA 15MM over a WIRE, BALANCE MIDDLEWEIGHT 190CM 190CM in the SVG-OM was 18:25:37 inflated using a 30 AMIRAH INDEFLATOR at 8 amirah for 10 sec. A BALLOON, 2.0 X 15MM EUPHORA 15MM over a WIRE, BALANCE MIDDLEWEIGHT 190CM 190CM in the SVG-OM was 18:26:13 inflated using a 30 AMIRAH INDEFLATOR at 10 amirah for 12 sec. 18:27:18 Balloon Removed 18:29:03 A WIRE, SPIDERFX 4.0 X 320/190CM 40 X 320CM was inserted via Radial (right). 18:31:03 Wire removed bmw A STENT, SYNERGY 3.5 X12MM was advanced through a AL 1 GUIDE CATHETER FR 6 over a WIRE, SPIDERF X 4.0 X 18:36:48 320/190CM 40 X 320CM. A STENT, SYNERGY 3.5 X12MM was deployed using a 30 AMIRAH INDEFLATOR at 14 atmospheres for 30 seco nds in the 18:37:54 SVG-OM. 18:39:13 Delivery device removed A STENT, SYNERGY 3.0 X 16MM was advanced through a AL 1 GUIDE CATHETER FR 6 over a WIRE, SPIDER FX 4.0 X 18:42:05 320/190CM 40 X 320CM. A STENT, SYNERGY 3.0 X 16MM was deployed using a 30 AMIRAH INDEFLATOR at 16 atmospheres for 30 sec onds in the 18:43:51 SVG-OM. 18:45:10 Delivery device removed 18:46:57 200 mcg NTG (IC) given in lab by Fam Hernandez via Intra-coronary. A BALLOON, 3.0 X 12MM NC EUPHORA 12MM was inserted over WIRE, SPIDERFX 4.0 X 320/190CM 40 X 320 CM via 18:48:52 the Radial (right). A BALLOON, 3.0 X 12MM NC EUPHORA 12MM over a WIRE, SPIDERFX 4.0 X 320/190CM 40 X 320CM in the S VG-OM 18:50:52 was inflated using a 30 AMIRAH INDEFLATOR at 12 amirah for 12 sec. A BALLOON, 3.0 X 12MM NC EUPHORA 12MM over a WIRE, SPIDERFX 4.0 X 320/190CM 40 X 320CM in the S VG-OM 18:51:28 was inflated using a 30 AMIRAH INDEFLATOR at 14 amirah for 10 sec. 18:51:59 Balloon Removed 18:59:48 Spider Wire removed 19:00:16 A WIRE, EXCHANGE 260CM 3MMJ 260CM was inserted via Radial (right). 19:00:38 Catheter was removed 19:00:39 Wire removed 19:02:39 Case End (Physician broke scrub) 19:04:07 180 mg BRILLINTA given in lab by Chasidy Lopez, RN in Per mouth via Oral. 19:05:57 Waiting on CIC room to be cleaned Radial Compression Device Used. 10 mLs of air placed in BAND, RADIAL COMPRESSION TR SHORT 24 24 CM. Affected 19:07:40 hand 96 % O2 saturation. 19:08:05 No case complications noted. 19:08:13 Bedside Report will be given. 19:08:19 A Left Heart Cath was performed. 19:20:31 Patient moved to stretcher 19:25:35 Catheter(s) removed without difficulty End Study - Contrast Media Used In Study Contrast Total Opened (mL) Total Used (mL) Total Wasted (mL) Omnipaque 165 165 0 End Study - Maximum Contrast Load Max Contrast Load (mL) 453.7 End Study - Radiation Exposure Fluoro Time (minutes) 20.2 End Study - Sheaths Sheaths Pulled By Sheath Hold Time (min) Moraima Vo End Study - Patient Disposition Complications Transferred To Interventional Outcome No Telemetry Bed successful
--- NOTE | 2018-04-03 01:45 | P.PNCA ---
Subjective Interval history: s/p PCI of SVG to OM No complaints Medications and Allergies Active Medications: Active Medications Amlodipine Besylate (Norvasc) 10 mg PO DAILY [facility] Last Admin: 04/02/18 09:55 Dose: 10 mg Aspirin (Aspirin Chew) 81 mg PO DAILY [facility] Dextrose (D50w Vial) 50 ml IV.PUSH UNSCH PRN PRN Reason: PER HYPOGLYCEMIA PROTOCOL Ezetimibe (Zetia) 10 mg PO DAILY [facility] Last Admin: 04/02/18 09:56 Dose: 10 mg Glucagon (Glucagon Inj) 1 mg OTHER PRN PRN PRN Reason: for Hypoglycemia Protocol Sodium Chloride (Ns Inj) 1,000 mls @ 50 mls/hr IV.CONT .Q20H [facility] Last Infusion: 04/02/18 22:49 Dose: 50 mls/hr Insulin Aspart (Novolog Insulin Correctional Sugar Inj) 0 unit SQ ACHS [facility]; Protocol Last Admin: 04/02/18 20:53 Dose: Not Given Isosorbide Mononitrate (Imdur) 30 mg PO DAILY@0700 [facility] Last Admin: 04/02/18 07:53 Dose: Not Given Lisinopril (Prinivil) 5 mg PO DAILY [facility] Metoprolol Tartrate (Lopressor) 12.5 mg PO BID [facility] Last Admin: 04/02/18 20:52 Dose: 12.5 mg Miscellaneous (Pill Splitter) 1 each OTHER UNSCH X1 PRN PRN Reason: SEE LABEL COMMENTS Pravastatin Sodium (Pravachol) 40 mg PO HS [facility] Last Admin: 04/02/18 20:51 Dose: 40 mg Sodium Chloride (Ns Flush) 2 ml IV.FLUSH PRN PRN PRN Reason: FLUSH AFTER USING IV ACCESS Sodium Chloride (Ns Flush) 2 ml IV.FLUSH BID [facility] Last Admin: 04/02/18 20:52 Dose: 2 ml Ticagrelor (Brilinta) 90 mg PO BID [facility] Allergies Allergy/AdvReac Type Severity Reaction Status Date / Time diatrizoate meglumine Allergy Severe Nausea Verified 04/01/18 02:46 fenofibrate Allergy Severe Nausea Verified 04/01/18 02:46 gadobenic acid Allergy Severe Nausea Verified 04/01/18 02:46 gadodiamide Allergy Severe Nausea Verified 04/01/18 02:46 gadoteridol Allergy Severe Nausea Verified 04/01/18 02:46 iodixanol Allergy Severe Nausea Verified 04/01/18 02:46 iohexol Allergy Severe Nausea Verified 04/01/18 02:46 iodine Allergy Mild Nausea/Vomi Verified 04/01/18 02:46 ting potassium iodide Allergy Mild Nausea/Vomi Verified 04/01/18 02:46 ting povidone-iodine Allergy Mild Nausea/Vomi Verified 04/01/18 02:46 ting sodium iodide Allergy Mild Nausea/Vomi Verified 04/01/18 02:46 ting sodium iodide Allergy Mild Nausea/Vomi Verified 04/01/18 02:46 ting STATINS Allergy Severe Muscle Pain Uncoded 04/01/18 02:46 Home Medications Medication Instructions Recorded Confirmed Type Aspirin Low Dose 81 mg PO DAILY 04/01/18 04/01/18 History amlodipine 10 mg PO DAILY 04/01/18 04/01/18 History ezetimibe 10 mg PO DAILY 04/01/18 04/01/18 History isosorbide mononitrate 30 mg PO DAILY 04/01/18 04/01/18 History metoprolol tartrate 100 mg PO DAILY 04/01/18 04/01/18 History nitroglycerin 0.4 mg SUBLINGUAL Q5-15M PRN 04/01/18 04/01/18 History sitagliptin [Januvia] 100 mg PO DAILY 04/01/18 04/01/18 History Physical Exam Vital signs: Vital Signs 04/02/18 07:44 04/02/18 07:54 04/02/18 11:53 Temperature 97.4 F L 98.0 F Pulse Rate 53 L 66 65 Respiratory Rate 20 16 Blood Pressure 139/65 137/69 Pulse Oximetry 94 L 97 04/02/18 16:00 04/02/18 20:00 04/02/18 21:00 Temperature 97.6 F 98.3 F Pulse Rate 62 64 88 Respiratory Rate 12 18 Blood Pressure 134/65 156/95 H Pulse Oximetry 96 97 04/02/18 22:00 04/02/18 23:00 04/02/18 23:53 Temperature 98.0 F Pulse Rate 86 73 62 Respiratory Rate 20 Blood Pressure 151/77 H Pulse Oximetry 98 Intake & Output 04/02/18 04/02/18 04/03/18 06:59 18:59 06:59 Intake Total 0 / 0 Balance 0 / 0 Intake: IV 0 / 0 NS Inj 1,000 ML @ 50 mls/hr IV. 0 / 0 CONT .Q20H [facility] Rx#:[id number] Narrative: no acute distress anicteric, pupils equally reactive neck supple, no bruit'lungs- clear regular rhythm abdomen- soft nontender extremiteis no edema neuro exam- unremarkable Results 04/01/18 03:00 04/01/18 03:00 Cardiac Enzymes 04/01/18 04/01/18 04/01/18 Range/Units 03:00 07:48 15:27 AST 22 (15-37) U/L CK-MB (CK-2) 1.3 (0.5-3.6) ng/mL Troponin I Less than 0.02 L Less than 0.02 L 0.02 (0.02-0.05) ng/mL Lipids 04/02/18 Range/Units 05:10 Triglycerides 67 (42-150) mg/dL Cholesterol 140 (120-200) mg/dL HDL Cholesterol 51.0 (40.0-60.0) mg/dL Cholesterol/HDL Ratio 2.74 Ratio CBC 04/01/18 Range/Units 03:00 WBC 5.7 (4.0-11.0) th/mm3 RBC 4.94 (4.50-5.90) mil/mm3 Hgb 13.2 (13.0-17.0) gm/dL Hct 40.4 (39.0-51.0) % Plt Count 156 (150-450) th/mm3 Neut # (Auto) 2.8 (1.8-7.7) th/mm3 Lymph # (Auto) 2.1 (1.0-4.8) th/mm3 [place] # (Auto) 0.6 (0.0-0.9) th/mm3 Eos # (Auto) 0.2 (0.0-0.4) th/mm3 Baso # (Auto) 0.0 (0.0-0.2) th/mm3 Comprehensive Metabolic Panel 04/01/18 Range/Units 03:00 Sodium 143 (136-145) meq/L Potassium 4.1 (3.5-5.1) meq/L Chloride 106 (98-107) meq/L Carbon Dioxide 27.5 (21.0-32.0) meq/L BUN 24 H (7-18) mg/dL Creatinine 1.13 (0.60-1.30) mg/dL Calcium 8.6 (8.5-10.1) mg/dL AST 22 (15-37) U/L ALT 33 (12-78) U/L Alkaline Phosphatase 87 (45-117) U/L Total Protein 7.6 (6.4-8.2) g/dL Albumin 3.6 (3.4-5.0) g/dL Intake and Output 04/02/18 04/02/18 04/03/18 14:59 22:59 06:59 Intake Total 0 / 0 Balance 0 / 0 Intake: IV 0 / 0 NS Inj 1,000 ML @ 50 mls/hr IV. 0 / 0 CONT .Q20H [facility] Rx#:[id number] - Imaging and Cardiology Imaging: Impressions Myocardial Perfusion Scan Nuc Med 04/01/18 00:00 CONCLUSION: 1. Significant stress-induced ischemia described above. Chest X-Ray 04/01/18 02:59 CONCLUSION: Mild left base atelectasis. Otherwise negative. Assessment and Plan - Assessment (1) Hx of CABG Code(s): Z95.1 - Presence of aortocoronary bypass graft Status: Acute (2) Abnormal stress test Code(s): R94.39 - Abnormal result of other cardiovascular function study Status: Acute (3) Chest pain with high risk for cardiac etiology Code(s): R07.9 - Chest pain, unspecified Status: Acute (4) History of coronary artery disease Code(s): Z86.79 - Personal history of other diseases of the circulatory system Status: Chronic (5) History of type 2 diabetes mellitus Code(s): Z86.39 - Personal history of other endocrine, nutritional and metabolic disease Status: Chronic (6) History of hypertension Code(s): Z86.79 - Personal history of other diseases of the circulatory system Status: Chronic - Plan 1) CAD/abnormal stress test s/p PCI of SVG to OM with 2 [place] ASA/Brilinta BB/Statin/AROLDO 2) Statin allergy Willing to attempt being placed on statins again 3) Will watch overnight and if stable tomorrow discharge home to follow up with Dr. Vaughn
[2018-04-03 04:22] VITALS: RESP 18
[2018-04-03] MEDS: Sod Chloride 0.9% Inj 1,000 ML IV.CONT SCH (05:58)
[2018-04-03] MEDS: Isosorbide Mononitrate 30 MG ER 24HR Tablet (Imdur) PO SCH (06:16)
[2018-04-03 06:34] LABS: Hematocrit 42.6 % (39.0-51.0); Hemoglobin 13.9 gm/dL (13.0-17.0); Mean Corpuscular HGB Conc 32.6 % (32.0-36.0); Mean Corpuscular Hemoglobin 26.7 pg (27.0-34.0); Mean Corpuscular Volume 81.9 fL (80.0-100.0); Mean Platelet Volume 8.9 fL (7.0-11.0); Platelet Count 163 th/mm3 (150-450); Red Cell Distribution Width 17.1 % (11.6-17.2); White Blood Count 6.5 th/mm3 (4.0-11.0)
--- NOTE | 2018-04-03 06:37 | MA ---
cc: Fam Hernandez DO DATE: 04/02/2018 PROCEDURE: Left heart catheterization, coronary angiogram, bypass angiogram, moderate sedation 82 minutes, Synergy drug-eluting stent x 2 (ostial 3 x 16, mid 325 x 12) to the saphenous vein graft to obtuse marginal, complex procedure. PREPROCEDURE DIAGNOSES: Unstable angina, abnormal stress test (high risk). POSTPROCEDURE DIAGNOSES: High risk stress test, status post Synergy drug-eluting stent x 2 (ostial 3.0 x 16, mid 3.5 x 12) to the saphenous vein graft to obtuse marginal. MEDICATIONS: Solu-Medrol 125 mg, Benadryl 25 mg, Pepcid 20 mg, Versed 0.5 mg, fentanyl 25 mcg, heparin 10,000 units, verapamil 2.5 mg, nitro 200 mcg, Brilinta 180 mg. CONTRAST USED: 165 mL. FLUOROSCOPY: 20.2 minutes. MODERATE SEDATION: 82 minutes. FRAILTY SCORE:. 3. ESTIMATED BLOOD LOSS: 10 mL. PROCEDURAL SUMMARY: Paulo Mccann is a pleasant 67-year-old male who sees my partner, Dr. Vaughn in the office and presented to [facility] due to chest pain. He underwent stress testing, which was read as a large area of anterolateral ischemia, but was read as intermediate risk. Evaluation of the stress test shows that this was lateral ischemia with the whole lateral wall being ischemic; and due to the large area, this should be considered a high risk stress test. Because of this, he was recommended cardiac catheterization. Risks, benefits, and alternatives were explained to him and he consented to such. He was brought to the lab and prepped in the usual sterile fashion. The right radial artery was accessed using modified Seldinger technique and placement of a 5/6 Macedonian slender sheath. This was easily aspirated and flushed. A JR4 was advanced to the right subclavian and exchanged for an IM catheter, which was used for selective angiography of the PATRICIA to LAD. This was then exchanged back for a JR4, which was used to cross the aortic valve into the left ventricle for measurement of left ventricular end-diastolic pressure. This was pulled back across the aortic valve showing no significant gradient of aortic stenosis. JR4 was then used for selective angiography of the right coronary artery system as well as the saphenous vein graft to the second obtuse marginal. The saphenous vein graft to the first obtuse marginal was known to be occluded. This was exchanged out for a JL3.5, which was used for selective angiography of the left coronary artery system. Please see notes below for intervention. FINDINGS: LEFT MAIN: Moderate size vessel with no significant disease. It bifurcates into an LAD and circumflex. LAD: 100% occluded at the ostium. LEFT CIRCUMFLEX: Moderate size vessel, which proceeds down the AV groove with no significant disease. Previous obtuse marginals are occluded. RCA: Moderate size vessel with diffuse 40%-50% disease and no significant lesions. PATRICIA to LAD is patent with no significant disease. This fills the LAD antegradely. Minimal flow is seen going retrograde. Saphenous vein graft believed to be to the first obtuse marginal occluded from before. Saphenous vein graft to second obtuse marginal with 95% ostial stenosis as well as a 95% in the mid portion. Previous stent distal to this is patent. LVEDP: 20. INTERVENTION: Due to the significance of disease in the saphenous vein graft, which correlated with the area of ischemia on stress test, he was recommended coronary intervention. An AL1 guide was engaged into the saphenous vein graft to the obtuse marginal. The patient was given heparin as an anticoagulant. A BMW wire was advanced into the distal portion. I attempted to place a Spider filter distally, but was unable to pass the ostial lesion and so a compliant balloon (2 x 15) was used to pre-dilate this lesion. A 4 mm spider lesion was placed distal to the two lesions and the BMW wire was removed. A Synergy drug-eluting stent (3.5 x 12) was placed over the mid lesion and inflated for direct stenting. This was then exchanged for a Synergy drug-eluting stent (3 x 16), which was placed over the ostium and inflated. Angiogram shows the mid stent is well opposed but the ostial stent was not fully opposed. A noncompliant balloon (3 x 12) was placed at the ostium and inflated to further expand the stent. Filter was removed with the removal catheter. Final angiogram shows 2 well opposed stents with no perforations or dissections and good flow distally. There is a lesion in between the 2 stents which was felt to be nonsignificant and will continue to be treated medically. He was loaded with 180 mg of Brilinta. A radial band was placed over the arteriotomy site for hemostasis. The patient left the laboratory supervisor cardiovascularly stable. INTERVENTIONAL DATA: Lesion 1 mid saphenous vein graft to obtuse marginal, lesion length 10, pre-CHIQUITA 2, post-CHIQUITA 3, post stenosis 0. Lesion 2 proximal saphenous vein graft to obtuse marginal, lesion length 20, pre-CHIQUITA 2 flow CHIQUITA 3, post stenosis 0. IMPRESSION: 1. Chest pain concerning for coronary insufficiency/unstable angina. 2. Abnormal stress test (high risk). 3. Coronary artery bypass graft x 3 (2/3 grafts patent). 4. Status post Synergy drug-eluting stent x 2 to saphenous vein graft to obtuse marginal as above. RECOMMENDATIONS: 1. Mr. Rausch presented with chest pain and underwent PCI as above. 2. He will be recommended aspirin and Brilinta therapy. 3. He will be started on beta amber and AROLDO inhibitor therapy. 4. He does have a STATIN ALLERGY, but was unsure what medications he was on before. We will plan on placing him on pravastatin 40 mg and if further muscle pains, statin therapy may need to be stopped. 5. We watched overnight and if stable in the morning, discharged home to followup with Dr. Vaughn. Thank you for allowing me to see Paulo Mccann. If there are any questions, please do not hesitate to call. DO JAUN Chandler/isidoro , 11:19 PM , 11:35 PM
[2018-04-03 06:57] LABS: Calcium 9.3 mg/dL (8.5-10.1); Carbon Dioxide 21.7 meq/L (21.0-32.0); Potassium 4.1 meq/L (3.5-5.1)
[2018-04-03] MEDS: Metoprolol Tartrate 25 MG Tablet PO SCH (08:37)
[2018-04-03] MEDS: amLODIPine 10 MG Tablet PO SCH (08:37)
[2018-04-03] MEDS: Ezetimibe 10 MG Tablet PO SCH (08:38)
[2018-04-03 08:43] LABS: Lymphocytes 10 % (9-44); Monocytes 2 % (0-8); Ovalocytes 1+; Platelet Estimate Normal (Normal); Platelet Morphology Normal (Normal)
[2018-04-03] MEDS: Insulin NovoLOG Aspart Correctional Sugar Inj SQ SCH (08:43)
[2018-04-03] MEDS ORDERED: Lisinopril 5 MG Tablet PO SCH (09:00)
--- NOTE | 2018-04-03 12:28 | P.PNCA ---
Subjective Interval history: No events overnight No complaints Medications and Allergies Active Medications: Active Medications Amlodipine Besylate (Norvasc) 10 mg PO DAILY [facility] Last Admin: 04/03/18 08:37 Dose: 10 mg Aspirin (Aspirin Chew) 81 mg PO DAILY [facility] Last Admin: 04/03/18 08:38 Dose: 81 mg Dextrose (D50w Vial) 50 ml IV.PUSH UNSCH PRN PRN Reason: PER HYPOGLYCEMIA PROTOCOL Ezetimibe (Zetia) 10 mg PO DAILY [facility] Last Admin: 04/03/18 08:38 Dose: 10 mg Glucagon (Glucagon Inj) 1 mg OTHER PRN PRN PRN Reason: for Hypoglycemia Protocol Sodium Chloride (Ns Inj) 1,000 mls @ 50 mls/hr IV.CONT .Q20H [facility] Last Admin: 04/03/18 05:58 Dose: Not Given Insulin Aspart (Novolog Insulin Correctional Sugar Inj) 0 unit SQ ACHS [facility]; Protocol Last Admin: 04/03/18 08:43 Dose: 1 unit Isosorbide Mononitrate (Imdur) 30 mg PO DAILY@0700 [facility] Last Admin: 04/03/18 06:16 Dose: 30 mg Lisinopril (Prinivil) 5 mg PO DAILY [facility] Last Admin: 04/03/18 08:37 Dose: 5 mg Metoprolol Tartrate (Lopressor) 12.5 mg PO BID [facility] Last Admin: 04/03/18 08:37 Dose: 12.5 mg Miscellaneous (Pill Splitter) 1 each OTHER UNSCH X1 PRN PRN Reason: SEE LABEL COMMENTS Pravastatin Sodium (Pravachol) 40 mg PO HS [facility] Last Admin: 04/02/18 20:51 Dose: 40 mg Sodium Chloride (Ns Flush) 2 ml IV.FLUSH PRN PRN PRN Reason: FLUSH AFTER USING IV ACCESS Sodium Chloride (Ns Flush) 2 ml IV.FLUSH BID [facility] Last Admin: 04/03/18 08:43 Dose: 2 ml Ticagrelor (Brilinta) 90 mg PO BID [facility] Last Admin: 04/03/18 08:38 Dose: 90 mg Allergies Allergy/AdvReac Type Severity Reaction Status Date / Time diatrizoate meglumine Allergy Severe Nausea Verified 04/01/18 02:46 fenofibrate Allergy Severe Nausea Verified 04/01/18 02:46 gadobenic acid Allergy Severe Nausea Verified 04/01/18 02:46 gadodiamide Allergy Severe Nausea Verified 04/01/18 02:46 gadoteridol Allergy Severe Nausea Verified 04/01/18 02:46 iodixanol Allergy Severe Nausea Verified 04/01/18 02:46 iohexol Allergy Severe Nausea Verified 04/01/18 02:46 iodine Allergy Mild Nausea/Vomi Verified 04/01/18 02:46 ting potassium iodide Allergy Mild Nausea/Vomi Verified 04/01/18 02:46 ting povidone-iodine Allergy Mild Nausea/Vomi Verified 04/01/18 02:46 ting sodium iodide Allergy Mild Nausea/Vomi Verified 04/01/18 02:46 ting sodium iodide Allergy Mild Nausea/Vomi Verified 04/01/18 02:46 ting STATINS Allergy Severe Muscle Pain Uncoded 04/01/18 02:46 Home Medications Medication Instructions Recorded Confirmed Type Aspirin Low Dose 81 mg PO DAILY 04/01/18 04/01/18 History amlodipine 10 mg PO DAILY 04/01/18 04/01/18 History ezetimibe 10 mg PO DAILY 04/01/18 04/01/18 History isosorbide mononitrate 30 mg PO DAILY 04/01/18 04/01/18 History metoprolol tartrate 100 mg PO DAILY 04/01/18 04/01/18 History nitroglycerin 0.4 mg SUBLINGUAL Q5-15M PRN 04/01/18 04/01/18 History sitagliptin [Januvia] 100 mg PO DAILY 04/01/18 04/01/18 History Physical Exam Vital signs: Vital Signs 04/02/18 16:00 04/02/18 20:00 04/02/18 21:00 Temperature 97.6 F 98.3 F Pulse Rate 62 64 88 Respiratory Rate 12 18 Blood Pressure 134/65 156/95 H Pulse Oximetry 96 97 04/02/18 22:00 04/02/18 23:00 04/02/18 23:53 Temperature 98.0 F Pulse Rate 86 73 62 Respiratory Rate 20 Blood Pressure 151/77 H Pulse Oximetry 98 04/03/18 00:00 04/03/18 01:00 04/03/18 02:00 Temperature Pulse Rate 76 64 82 Respiratory Rate Blood Pressure Pulse Oximetry 04/03/18 03:00 04/03/18 04:00 04/03/18 05:00 Temperature 97.6 F Pulse Rate 71 69 62 Respiratory Rate 18 Blood Pressure 148/81 H Pulse Oximetry 100 04/03/18 06:00 04/03/18 07:00 04/03/18 08:00 Temperature 97.7 F Pulse Rate 88 65 98 H Respiratory Rate 18 Blood Pressure 158/86 H Pulse Oximetry 97 04/03/18 09:00 04/03/18 10:00 04/03/18 11:00 Temperature Pulse Rate 86 68 84 Respiratory Rate Blood Pressure Pulse Oximetry Intake & Output 04/02/18 04/03/18 04/03/18 18:59 06:59 18:59 Intake Total 960 / 960 Output Total 1350 / 1350 Balance -390 / -390 Weight 101.4 kg Intake: IV 0 / 0 NS Inj 1,000 ML @ 50 mls/hr IV. 0 / 0 CONT .Q20H EDELMIRA Rx#:[id number] Oral 960 / 960 Output: Urine 1350 / 1350 Other: # Voids 1 Date of Last Bowel Movement 03/31/18 Narrative: no acute distress anicteric, pupils equally reactive neck supple, no bruit'lungs- clear regular rhythm abdomen- soft nontender extremiteis no edema neuro exam- unremarkable Results 04/03/18 05:51 04/03/18 05:51 Cardiac Enzymes 04/01/18 Range/Units 15:27 Troponin I 0.02 (0.02-0.05) ng/mL Lipids 04/02/18 Range/Units 05:10 Triglycerides 67 (42-150) mg/dL Cholesterol 140 (120-200) mg/dL HDL Cholesterol 51.0 (40.0-60.0) mg/dL Cholesterol/HDL Ratio 2.74 Ratio CBC 04/03/18 Range/Units 05:51 WBC 6.5 (4.0-11.0) th/mm3 RBC 5.20 (4.50-5.90) mil/mm3 Hgb 13.9 (13.0-17.0) gm/dL Hct 42.6 (39.0-51.0) % Plt Count 163 (150-450) th/mm3 Comprehensive Metabolic Panel 04/03/18 Range/Units 05:51 Sodium 139 (136-145) meq/L Potassium 4.1 (3.5-5.1) meq/L Chloride 107 (98-107) meq/L Carbon Dioxide 21.7 (21.0-32.0) meq/L BUN 17 (7-18) mg/dL Creatinine 1.02 (0.60-1.30) mg/dL Calcium 9.3 (8.5-10.1) mg/dL Intake and Output 04/02/18 04/03/18 04/03/18 22:59 06:59 14:59 Intake Total 0 / 0 960 / 960 Output Total 1350 / 1350 Balance 0 / 0 -390 / -390 Intake: IV 0 / 0 NS Inj 1,000 ML @ 50 mls/hr IV. 0 / 0 CONT .Q20H EDELMIRA Rx#:[id number] Oral 960 / 960 Output: Urine 1350 / 1350 Other: # Voids 1 Date of Last Bowel Movement 03/31/18 Weight 101.4 kg - Imaging and Cardiology Imaging: Impressions Myocardial Perfusion Scan Nuc Med 04/01/18 00:00 CONCLUSION: 1. Significant stress-induced ischemia described above. Assessment and Plan - Assessment (1) Hx of CABG Code(s): Z95.1 - Presence of aortocoronary bypass graft Status: Acute (2) Abnormal stress test Code(s): R94.39 - Abnormal result of other cardiovascular function study Status: Acute (3) Chest pain with high risk for cardiac etiology Code(s): R07.9 - Chest pain, unspecified Status: Acute (4) History of coronary artery disease Code(s): Z86.79 - Personal history of other diseases of the circulatory system Status: Chronic (5) History of type 2 diabetes mellitus Code(s): Z86.39 - Personal history of other endocrine, nutritional and metabolic disease Status: Chronic (6) History of hypertension Code(s): Z86.79 - Personal history of other diseases of the circulatory system Status: Chronic - Plan 1) CAD/abnormal stress test s/p PCI of SVG to OM with 2 KODAK ASA/Brilinta BB/Statin/AROLDO 2) Statin allergy Willing to attempt being placed on statins again 3) Cardiovascularly stable for discharge Follow up with Dr Vaughn
--- NOTE | 2018-04-03 12:53 | P.DS ---
Date of admission: 04/01/18 05:04 Primary care physician: UNKNOWN Brief History from admission: 67-year-old male with history of coronary artery disease including CABG 2 at age 40, presents emergency room for further evaluation of nonexertional, intermittent chest pain. Onset . Location substernal. Characterizes pressure. No radiation. No associated symptoms of nausea, vomiting, dyspnea, or diaphoresis. Precipitating factors seem to be after eating a meal or " eating too much." Relieving factors nitroglycerin, discomfort relieved within 1 2 minutes. Denies regular use of nitro, in fact never took nitroglycerin prescription given since CABG in the . Refills Nitro Rx yearly and tablets are not . Took total of 6 nitro tablets over last couple of days. Early this morning, took additional nitro SL without relief. Took [address] himself to hospital. States while walking into ER chest discomfort resolved. Endorses recent nuclear cardiac testing 3 months ago. After testing states Dr. Vaughn added Imdur 30mg daily to medication regimen for "a blockage." Past cardiac testing 01/06/2014 Cardiac catheterization (Dr. Phillips) Graft angiography: The saphenous vein graft presumably to the LAD was totally occluded. A vein graft to the obtuse marginal and the circumflex demonstrated a 90% stenosis at the anastomosis fo the circumflex. The internal mammary artery graft was no anastomosed into the coronary circulation. Conclusions: Successful PTCA and stenting of distal left circumflex graft. 10/09/2012 Cardiac catheterization (Dr. Phillips) Conclusions: 1. Status post PTCA and stenting of left circumflex graft. 2. Patent PATRICIA to left anterior descending artery. 3. Normal left ventricular function and hemodynamics. 02/16/2008 Cardiac catheterization (Dr. Phillips) Conclusion: The patient demonstrates patent graft to the obtuse marginal branch of the LAD with a patent right coronary artery. It does not appear that this chest pain is secondary to obstructive coronary artery disease. 11/21/2006 Cardiac catheterization (Dr. Phillips) Conclusions: 1. Successful PTCA and stenting of left circumflex and proximal right coronary artery. 2. Patent bypass grafts to the LAD and obtuse marginal of the circumflex. 3. Normal left ventricular function. 1990 CABGx2 Social history Known CAD, hypertension, hyperlipidemia, and diabetes. Reports recent HGA1C in 5 % range. Lifelong nonsmoker. Denies any alcohol or recreational drug use. Family history Noncontributory for early onset cardiovascular disease DS: Diagnosis - Discharge Diagnosis (1) Chest pain with high risk for cardiac etiology Status: Acute DS: Medications - Discharge Medications Prescriptions: lisinopril 5 mg PO DAILY #30 tab pravastatin 40 mg PO HS #30 tab ticagrelor [Brilinta] 90 mg PO BID #60 tab DS: Summary Hospital Course: Patient was admitted. Was found to have an abnormal stress test. Cardiology evaluated the patient, performed PCI with 2 drug-eluting stents. Patient's chest pain resolved. Patient has met maximal benefit from hospitalization and is clinically stable for discharge. - Time Spent with Patient Total time spent providing and/or coordinating discharge services: Less than 30 minutes - Quality: VTE Deep Vein Thrombosis/Pulmonary Embolism Present on Admission: No Exam Vital signs: Vital Signs 04/02/18 16:00 04/02/18 20:00 04/02/18 21:00 Temperature 97.6 F 98.3 F Pulse Rate 62 64 88 Respiratory Rate 12 18 Blood Pressure 134/65 156/95 H Pulse Oximetry 96 97 04/02/18 22:00 04/02/18 23:00 04/02/18 23:53 Temperature 98.0 F Pulse Rate 86 73 62 Respiratory Rate 20 Blood Pressure 151/77 H Pulse Oximetry 98 04/03/18 00:00 04/03/18 01:00 04/03/18 02:00 Temperature Pulse Rate 76 64 82 Respiratory Rate Blood Pressure Pulse Oximetry 04/03/18 03:00 04/03/18 04:00 04/03/18 05:00 Temperature 97.6 F Pulse Rate 71 69 62 Respiratory Rate 18 Blood Pressure 148/81 H Pulse Oximetry 100 04/03/18 06:00 04/03/18 07:00 04/03/18 08:00 Temperature 97.7 F Pulse Rate 88 65 98 H Respiratory Rate 18 Blood Pressure 158/86 H Pulse Oximetry 97 04/03/18 09:00 04/03/18 10:00 04/03/18 11:00 Temperature Pulse Rate 86 68 84 Respiratory Rate Blood Pressure Pulse Oximetry 04/03/18 12:00 Temperature 97.9 F Pulse Rate 85 Respiratory Rate 18 Blood Pressure 148/81 H Pulse Oximetry 98 Intake & Output 04/02/18 04/03/18 04/03/18 18:59 06:59 18:59 Intake Total 960 / 960 Output Total 1350 / 1350 Balance -390 / -390 Weight 101.4 kg Intake: IV 0 / 0 NS Inj 1,000 ML @ 50 mls/hr IV. 0 / 0 CONT .Q20H EDELMIRA Rx#:[id number] Oral 960 / 960 Output: Urine 1350 / 1350 Other: # Voids 1 Date of Last Bowel Movement 03/31/18 Narrative: Heart sounds are regular rate rhythm, no murmurs Clear lungs bilaterally, unlabored breathing Results Procedures completed during hospitalization: s/p PCI of SVG to Obtuse Marginal with 2 KODAK Labs on day of discharge: Labs from last 24 hours 04/03/18 04/03/18 04/03/18 12:36 08:39 05:51 WBC RBC Hgb Hct MCV MCH MCHC RDW Plt Count MPV Prelim Diff (Auto) WBC Differential Seg Neuts % (Manual) Band Neuts % (Manual) Lymphocytes % (Manual) Monocytes % (Manual) Abs Neuts (Manual) Differential Comment Platelet Estimate Platelet Morphology Ovalocytes Sodium 139 Potassium 4.1 Chloride 107 Carbon Dioxide 21.7 Anion Gap 10 BUN 17 Creatinine 1.02 Estimated GFR 89 POC Glucose 142 H 193 H Random Glucose 149 H Hemoglobin A1c Calcium 9.3 04/03/18 04/02/18 04/02/18 05:51 20:46 16:44 WBC 6.5 RBC 5.20 Hgb 13.9 Hct 42.6 MCV 81.9 MCH 26.7 L MCHC 32.6 RDW 17.1 Plt Count 163 MPV 8.9 Prelim Diff (Auto) Manual diff required WBC Differential Manual diff final Seg Neuts % (Manual) 79 H Band Neuts % (Manual) 9 H Lymphocytes % (Manual) 10 Monocytes % (Manual) 2 Abs Neuts (Manual) 5.7 Differential Comment . Platelet Estimate Normal Platelet Morphology Normal Ovalocytes 1+ H Sodium Potassium Chloride Carbon Dioxide Anion Gap BUN Creatinine Estimated GFR POC Glucose 134 H 80 Random Glucose Hemoglobin A1c Calcium 04/02/18 04/02/18 12:47 05:10 WBC RBC Hgb Hct MCV MCH MCHC RDW Plt Count MPV Prelim Diff (Auto) WBC Differential Seg Neuts % (Manual) Band Neuts % (Manual) Lymphocytes % (Manual) Monocytes % (Manual) Abs Neuts (Manual) Differential Comment Platelet Estimate Platelet Morphology Ovalocytes Sodium Potassium Chloride Carbon Dioxide Anion Gap BUN Creatinine Estimated GFR POC Glucose 84 Random Glucose Hemoglobin A1c 6.7 H Calcium - Impressions ITS Impressions Myocardial Perfusion Scan Nuc Med 04/01/18 00:00 CONCLUSION: 1. Significant stress-induced ischemia described above. Chest X-Ray 04/01/18 02:59 CONCLUSION: Mild left base atelectasis. Otherwise negative. Discharge Plan - Discharge Disposition Patient Disposition: Discharge Home - Discharge Condition Condition: Stable - Discharge Order Discharge Orders: Discharge Order (Routine); Ordered 04/03/18 Ordered By: Alvaro Mas - Physicians Team Primary Care Provider: UNKNOWN, Attending Provider: Alvaro Mas Other Providers: [employer],Carlia ; Fam Hernandez DO
[2018-04-03 15:21] VITALS: BP 141/76; PULSE 76; TEMP 98.3; O2SAT 96
--- NOTE | 2018-04-03 15:32 | ECHRPT ---
Indication: CHEST PAIN CONCLUSIONS Normal left ventricular size. The left ventricular systolic function is normal with an estimated ejection fraction in the range of 55-60%. Mild concentric left ventricular hypertrophy. The left atrial size is mildly dilated. The right atrial size is mildly dilated. The interatrial septum not well visualized. The aortic root and proximal ascending aorta are not well visualized. Trace mitral valve regurgitation. There is trace tricuspid valve regurgitation. The estimated pulmonary arterial pressure is 38.3 mmHg. The inferior vena cava was not well visualized. BP: / HR: Rhythm: Sinus MEASUREMENTS (Male / Female) Normal Values Technical Quality:Fair 2D ECHO LV Diastolic Diameter PLAX 5.5 cm 4.2 - 5.9 / 3.9 - 5.3 cm LV Systolic Diameter PLAX 5.0 cm IVS Diastolic Thickness 1.2 cm 0.6 - 1.0 / 0.6 - 0.9 cm LVPW Diastolic Thickness 1.2 cm 0.6 - 1.0 / 0.6 - 0.9 cm LV Relative Wall Thickness 0.4 RV Internal Dim ED PLAX 2.7 cm LVOT Diameter 2.5 cm Aortic Root Diameter 4.2 cm LA Systolic Diameter LX 4.2 cm 3.0 - 4.0 / 2.7 - 3.8 cm M-MODE AV Cusp Separation MM 2.0 cm DOPPLER AV Peak Velocity 128.0 cm/s AV Peak Gradient 6.6 mmHg AV Mean Gradient 3.0 mmHg AV Velocity Time Integral 23.9 cm LVOT Peak Velocity 95.5 cm/s LVOT Peak Gradient 3.6 mmHg LVOT Velocity Time Integral 18.1 cm AV Area Cont Eq vti 3.7 cm AV Area Cont Eq pk 3.7 cm Mitral E Point Velocity 60.0 cm/s Mitral A Point Velocity 61.2 cm/s Mitral E to A Ratio 1.0 LV E' Lateral Velocity 5.9 cm/s Mitral E to LV E' Lateral Ratio 10.1 LV E' Septal Velocity 5.5 cm/s Mitral E to LV E' Septal Ratio 11.0 TR Peak Velocity 266.0 cm/s TR Peak Gradient 28.3 mmHg Right Atrial Pressure 10.0 mmHg Pulmonary Artery Systolic Pressu 38.3 mmHg Right Ventricular Systolic Press 38.3 mmHg PV Peak Velocity 61.7 cm/s PV Peak Gradient 1.5 mmHg FINDINGS LEFT VENTRICLE Normal left ventricular size. The left ventricular systolic function is normal with an estimated ejection fraction in the range of 55-60%. Mild concentric left ventricular hypertrophy. RIGHT VENTRICLE Normal right ventricular size and systolic function. LEFT ATRIUM The left atrial size is mildly dilated. RIGHT ATRIUM The right atrial size is mildly dilated. ATRIAL SEPTUM The interatrial septum not well visualized. AORTA The aortic root and proximal ascending aorta are not well visualized. MITRAL VALVE Trace mitral valve regurgitation. AORTIC VALVE Trileaflet aortic valve. No aortic valve stenosis or regurgitation. TRICUSPID VALVE There is trace tricuspid valve regurgitation. The estimated pulmonary arterial pressure is 38.3 mmHg. PULMONARY VALVE No pulmonary valve regurgitation or stenosis. VESSELS The inferior vena cava was not well visualized. PERICARDIUM No pericardial effusion. Hamzah Cunha MD (Electronically Signed) Final Date:03 April 2018 15:30
== END 2018-04-03 15:14 | disposition home or self-care (01) ==
LOC: NEPE 02:38 → NEDA 02:38 → NEPFCDU 07:45 → HCIS 04-02 17:41
PROVIDERS: ADMIT Hospitalist; ATTEND Hospitalist